=== PATIENT | male | born 1945 | race Caucasian/White ===

== ENCOUNTER 2017-11-13 07:52 | Emergency (ER) | payer MEDICARE, OTHER ==
[2017-11-13] MEDS ORDERED: Sodium Chloride 0.9% 10 ML Syringe FLUSH PRN (08:14)
[2017-11-13] MEDS ORDERED: Meclizine 25 MG Tab PO ONE (09:37)
--- NOTE | 2017-11-13 09:50 | EDM.PDOC ---
ED HPI GENERAL MEDICAL PROBLEM - General Chief Complaint: Cardiovascular Problem Stated Complaint: dizziness, weakness, diaphoretic Time Seen by Provider: 11/13/17 08:39 Source of Information: Reports: Patient History Limitations: Reports: No Limitations - History of Present Illness INITIAL COMMENTS - FREE TEXT/NARRATIVE: Patient came in to ER for evaluation due to developing diaphoresis as well as worsening dizziness this morning. He has had a long history of intermittent dizziness/vertigo that stretches back to 1969 when he had an "ear infection" that took 3 years to clear. Since then he has had intermittent issues with lightheadedness and vertigo-like complaints that can be triggered by sudden head movement. Additionally, he has been feeling more fatigued over the past few weeks and that has progressed a bit in intensity. He denies having issues with getting diaphoretic episodes in the past. He notes too that he has had some episodes where he feels as though his feet feet warm and that slowly spreads upwards. Patient is in the process of being worked up by [facility] for persistently elevated WBC. Patient says that over the past year that the WBC count has gradually been increasing. [facility] recently sent bloodwork to [facility] for processing. Patient apparently is to meet with heme/onc to go over these results when they are available. [facility] did discuss with him that fatigue may be expected. Patient denies feeling as though he has an obvious acute infection like influenza or other viral illness. No fevers. Denies runny nose/sore throat/new cough/acute GI disturbance. No complaints of pain. Continues to have a good appetite. - Related Data Allergies Allergy/AdvReac Type Severity Reaction Status Date / Time atorvastatin Allergy Muscle Verified 11/13/17 08:22 Aches Penicillins Allergy Rash Verified 11/13/17 08:22 pravastatin Allergy Muscle Verified 11/13/17 08:22 Aches Home Meds: Home Meds RX: Simvastatin [Zocor] 40 mg PO BEDTIME 05/21/16 [History] RX: Omeprazole 20 mg PO ACBREAKFAST 10/21/16 [History] RX: SUMAtriptan Succinate [Imitrex] 0.5 - 1 tab PO DAILY PRN 10/21/16 [History] Magnesium Oxide [Magnesium] 400 mg PO DAILY #30 capsule 11/13/17 [Rx] RX: Aspirin [Halfprin] 81 mg PO BRK 11/13/17 [History] RX: Vitamin D3/Vitamin K2 [D3 + K2 Dots 1,000 Unit] 2 each PO BID #120 tab.rapdis 11/13/17 [Rx] Past Medical History HEENT History: Reports: Allergic Rhinitis, Cataract, Hard of Hearing, Impaired Vision, Other (See Below) Other HEENT History: Bifocals, bilateral floaters, mild bilateral presbycusis with no hearing aid therapy, chronic tinnitus Cardiovascular History: Reports: Arrhythmia, High Cholesterol, Hypertension, PVD , Other (See Below) Other Cardiovascular History: 11/13/17- pt denies HTN reports hypotension in past , pt denies PVD Respiratory History: Reports: COPD, Pulmonary Fibrosis, Other (See Below) Other Respiratory History: Additional history of grain dust exposure Gastrointestinal History: Reports: Cholelithiasis, Colon Polyp, Diverticulosis, Gastritis, GERD, GI Bleed, Hemorrhoids, Hiatal Hernia, PUD, Other (See Below) Other Gastrointestinal History: Bleeding duodenal ulcer on 04/15/16 requiring surgery as below, 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, tubular adenoma of the cecum on 08/27/2005, non-symptomatic cholelithiasis by CT scan on 04/15/16 benign hepatic hemangioma Genitourinary History: Reports: BPH, Chronic Renal Insuffiency, Other (See Below ) Other Genitourinary History: Cr elevation, one kidney post donation Musculoskeletal History: Reports: Arthritis, Back Pain, Chronic, Osteoarthritis Neurological History: Reports: Headaches, Chronic, Migraines, Vertigo, Other ( See Below) Other Neuro History: History of chronic migraine headaches usually from wine, etc., chronic vertigo Psychiatric History: Reports: None Endocrine/Metabolic History: Reports: None Hematologic History: Reports: Anemia, Blood Transfusion(s), Iron Deficiency, Other (See Below) Other Hematologic History: 11/13/17- currently being worked up for possible blood cancer at [facility] Immunologic History: Reports: None Oncologic (Cancer) History: Reports: Other (See Below) Other Oncologic History: 11/13/17- currently being worked up for unknown blood cancer at [facility] Dermatologic History: Reports: None - Infectious Disease History Infectious Disease History: Reports: Chicken Pox, Measles, Mumps, Pertussis ( Whooping Cough) - Past Surgical History HEENT Surgical History: Reports: Cataract Surgery, Oral Surgery, Other (See Below) GI Surgical History: Reports: Colonoscopy, EGD, Hernia, Inguinal, Polypectomy, Other (See Below) Female Surgical History: Reports: Nephrectomy, Other (See Below) Dermatological Surgical History: Reports: Skin Biopsy - Past Imaging History Past Imaging History: Reports: Cardiac Echo, Carotid US, CAT Scan, PFT, Stress Testing, Ultrasound, Other (See Below) Social & Family History - Family History HEENT: Reports: None. Denies: Allergic Rhinitis, Glaucoma, Macular Degeneration , Retinal Detachment Cardiac: Reports: Afib, Arrhythmia, CAD, Heart Failure, Hypertension, SC, Other (See Below) Other Cardiac Family History: Maternal grandfather with fatal SC at age 75, maternal aunt with fatal SC at age 65, maternal uncle with coronary artery disease, mother and maternal aunt with unknown type of arrhythmia, mother with CHF in her 70s and fatal atrial fibrillation/CHF at age 91, hypertension in parents Respiratory: Reports: None. Denies: Asthma, COPD, PE, Sleep Apnea GI: Reports: GI bleed, PUD, Other (See Below) Other GI Family History: Sister with bleeding duodenal ulcer in her late 60s : Reports: Dialysis, Renal Disease/Insufficiency, Other (See Below) Other Family History: Maternal aunt with dialysis and fatal renal disease in her 80s OBGYN: Reports: None. Denies: Endometriosis, Recurrent Spontaneous Musculoskeletal: Reports: None. Denies: Arthritis, Gout, RA, SLE Neurological: Reports: CVA, Other (See Below) Other Neurological Family History: Mother with recurrent CVA, father with history of Guillian Loja syndrome Psychiatric: Reports: None. Denies: Abuse, Victim of, Anxiety, Depression, Psych Hospitalization(s), Psychosis, Suicide Attempt Endocrine/Metabolic: Reports: None. Denies: Diabetes, Type I, Diabetes, type II , Hypothyroidism Hematologic: Reports: None. Denies: SLE Immunologic: Reports: None. Denies: AIDS, HIV, SLE Dermatologic: Reports: None. Denies: Angiodema, Eczema, Psoriasis Oncologic: Reports: Leukemia, Other (See Below) Other Oncologic Family History: Maternal uncle with fatal possible stomach cancer at age 94 with initial diagnosis in his 70s, brother with fatal AML at age 46 - Tobacco Use Smoking Status *Q: Former Smoker Years of Tobacco use: 12 Packs/Tins Daily: 2 Used Tobacco, but Quit: Yes Month Tobacco Last Used: 1969 Second Hand Smoke Exposure: No - Caffeine Use Caffeine Use: Reports: Coffee (2 cups per day), Tea (One glass per day of ice tea). Denies: Energy Drinks, Soda - Alcohol Use Days Per Week of Alcohol Use: 0 (No previous DWIs, problems with alcohol abuse, etc.) - Recreational Drug Use Recreational Drug Use: No Drug Use in Last 12 Months: No - Living Situation & Occupation Living situation: Reports: , Alone Occupation: Retired ED ROS GENERAL - Review of Systems Review Of Systems: See Below Constitutional: Reports: Weakness, Fatigue, Diaphoresis. Denies: Fever, Chills , Malaise, Night Sweats, Decreased Appetite, Weight Loss, Weight Gain HEENT: Reports: Glasses, Rhinitis (chronic), Sinus Problem (chronic), Vertigo ( chronic intermittent). Denies: Ear Pain, Eye Discharge, Eye Pain, Throat Swelling, Vision Change Respiratory: Reports: No Symptoms, Other (Patient says that he has intermittent cough from his chronic sinus drainage. This is unchanged. ) Cardiovascular: Reports: Lightheadedness. Denies: Chest Pain, Dyspnea on Exertion, Edema, Orthopnea, Palpitations, PND, Syncope GI/Abdominal: Reports: No Symptoms, Other (No acute changes reported. ) : Reports: No Symptoms Musculoskeletal: Reports: No Symptoms (No acute changes. Does have chronic baseline discomfort from arthritis/low back issues) Skin: Reports: No Symptoms Neurological: Reports: Dizziness, Weakness, Other (Patient able to ambulate. Tries to make certain that he avoids sudden head movements that can worsen vertigo. ). Denies: Confusion, Headache, Numbness, Paresthesia, Pre-Existing Deficit, Seizure, Syncope, Tingling, Tremors, Trouble Speaking, Change in Speech , Gait Disturbance Psychiatric: Reports: No Symptoms Hematologic/Lymphatic: Denies: Anemia, Easy Bleeding, Easy Bruising, Swollen Glands Immunologic: Reports: Environmental Allergy, Seasonal Allergy ED EXAM, GENERAL - Physical Exam Exam: See Below Exam Limited By: No Limitations General Appearance: Alert, WD/WN, No Apparent Distress Eye Exam: Bilateral Eye: EOMI, PERRL, Other (no nystagmus noted with head rotation) Ears: Normal External Exam, Normal Canal, Hearing Grossly Normal, Normal TMs Nose: Normal Inspection, Normal Mucosa, No Blood Throat/Mouth: Normal Inspection, Normal Lips, Normal Teeth (Has some fillings noted), Normal Gums, Normal Oropharynx, Normal Voice, No Airway Compromise Head: Atraumatic, Normocephalic Neck: Normal Inspection, Supple, Non-Tender, Full Range of Motion. No: Lymphadenopathy (L), Lymphadenopathy (R) Respiratory/Chest: No Respiratory Distress, Lungs Clear, Normal Breath Sounds, No Accessory Muscle Use, Chest Non-Tender Cardiovascular: No Edema, No Murmur, Irregularly Irregular Peripheral Pulses: 2+: Femoral (L), Femoral (R) GI/Abdominal: Normal Bowel Sounds, Soft, Non-Tender, No Distention (Male) Exam: Deferred Rectal (Males) Exam: Deferred Back Exam: Normal Inspection, Full Range of Motion. No: CVA Tenderness (L), CVA Tenderness (R), Muscle Spasm, Paraspinal Tenderness, Vertebral Tenderness Extremities: Normal Inspection, Normal Range of Motion, Non-Tender, No Pedal Edema, Normal Capillary Refill Neurological: Alert, Oriented, CN II-XII Intact, Normal Cognition, Normal Gait, No Motor/Sensory Deficits Psychiatric: Normal Affect, Normal Mood Skin Exam: Warm, Dry, Intact, Normal Color, No Rash EKG INTERPRETATION EKG Date: 11/13/17 Time: 08:10 Rhythm: Other (Sinus rhythm with intermittent sinus arrhythmia. Does not appear consistent with PACs.) Rate (Beats/Min): 71 [place]: Normal P-Wave: Present QRS: RBBB ST-T: Normal QT: Normal Comparison: Change From Previous EKG (arrhythmia not present on last EKG) Course - Vital Signs Last Recorded V/S: Last Vital Signs Temp 36.5 C 11/13/17 07:52 Pulse 61 11/13/17 10:16 Resp 17 11/13/17 10:16 BP 137/91 H 11/13/17 10:16 Pulse Ox 100 11/13/17 10:16 Orthostatic Blood Pressure [ 135/70 Standing] Orthostatic Blood Pressure [ 136/75 Sitting] Orthostatic Blood Pressure [ 148/78 Supine] - Orders/Labs/Meds Orders: Active Orders 24 hr Category Date Time Status Cardiac Monitoring [RC] . DIRECTED Care 11/13/17 08:15 Active EKG Documentation Completion [RC] ASDIRECTED Care 11/13/17 08:05 Active Oxygen Therapy, ED [RC] ASDIRECTED Care 11/13/17 08:15 Active Chest 2V [CR] Routine Exams 11/13/17 09:05 Ordered Head wo Cont [CT] Stat Exams 11/13/17 09:04 Ordered URINALYSIS W/MICROSCOPIC [UA W/MICROSCOPIC] [URIN] Stat Lab 11/13/17 08:14 Uncollected Sodium Chloride 0.9% [Saline Flush] Med 11/13/17 08:14 Active 10 ml FLUSH ASDIRECTED PRN Saline Lock Insert [OM.PC] Routine Oth 11/13/17 08:14 Ordered Medication Orders Sodium Chloride (Saline Flush) 10 ml FLUSH ASDIRECTED PRN PRN Reason: Keep Vein Open Labs: Laboratory Tests 11/13/17 11/13/17 Range/Units 08:12 08:12 WBC 16.0 H (4.0-10.2) K/uL RBC 4.70 (4.33-5.41) M/uL Hgb 14.7 D (13.1-16.8) g/dL Hct 45.6 (39.0-49.0) % MCV 97.0 (84.0-98.0) fL MCH 31.3 (28.2-33.3) pg MCHC 32.2 (31.7-36.0) g/dL RDW 13.8 (11.2-14.1) % Plt Count 247 (150-350) K/uL Neut % (Auto) 29.7 L (45.0-80.0) % Lymph % (Auto) 62.6 H (10.0-50.0) % [place] % (Auto) 4.9 (2.0-14.0) % Eos % (Auto) 2.6 (0.0-5.0) % Baso % (Auto) 0.2 (0.0-2.0) % Neut # (Auto) 4.76 (1.40-7.00) K/uL Lymph # (Auto) 10.00 H (0.50-3.50) K/uL [place] # (Auto) 0.78 (0.00-1.00) K/uL Eos # (Auto) 0.41 (0.00-0.50) K/uL Baso # (Auto) 0.03 (0.00-0.20) K/uL Sodium 140 (136-145) mmol/L Potassium 4.1 (3.5-5.1) mmol/L Chloride 104 (98-107) mmol/L Carbon Dioxide 28.6 (21.0-32.0) mmol/L BUN 12 (7-18) mg/dL Creatinine 1.32 H (0.51-1.17) mg/dL Est Cr Clr Drug Dosing 52.29 mL/min Estimated GFR (MDRD) 53 mL/min Glucose 113 H (74-106) mg/dL Calcium 9.0 (8.5-10.1) mg/dL Total Bilirubin 0.4 (0.2-1.0) mg/dL AST 18 (15-37) U/L ALT 24 (12-78) U/L Alkaline Phosphatase 66 (46-116) IU/L Creatine Kinase 53 (26-308) U/L Creatine Kinase Index 1.7 (0.0-2.5) % CK-MB (CK-2) 0.90 (0.00-3.60) ng/mL Troponin I 0.000 (0.000-0.056) ng/mL Total Protein 7.2 (6.4-8.2) g/dL Albumin 2.8 L (3.4-5.0) g/dL Meds: Medications Generic Name Dose Route Start Last Admin Trade Name Freq PRN Reason Stop Dose Admin Sodium Chloride 10 ml 11/13/17 08:14 Saline Flush FLUSH ASDIRECTED PRN Keep Vein Open Discontinued Medications Generic Name Dose Route Start Last Admin Trade Name Freq PRN Reason Stop Dose Admin Meclizine HCl 25 mg 11/13/17 09:37 11/13/17 09:48 Antivert PO 11/13/17 09:38 25 mg ONETIME ONE Administration - Radiology Interpretation Free Text/Narrative:: Chest xray shows more prominence of the right horizontal fissure. No other acute abnormalities observed. CT Results Date: 11/13/17 CT Results Time: 09:45 (unremarkable head CT other than some atrophy) - Re-Assessments/Exams Free Text/Narrative Re-Assessment/Exam: 11/13/17 10:14 Troponin negative. WBC 53182. Patient not surprise at this given his upward trend over the past year. CBC/Chem otherwise noncontributory. Orthostatic BPs negative. Arrhythmia noted again is not new. Patient says that they have tried him on two different medications but the side effects were not tolerable. He feels able to go home and follow up with Luis. Observed to sit up/change positions easily during stay in ER. Cannot rule out some sort of mild viral illness, however these symptoms could very likely be related to underlying problem causing patient's abnormal WBC that is currently being worked up by Luis. Will try Meclizine to see if it helps improve sensation of dizziness. Patient is to follow up with us if things suddenly worsen, otherwise should follow up with Luis. Free Text/Narrative Re-Assessment/Exam: 11/13/17 10:53 Dizziness has resolved. No additional episodes of diaphoresis. Patient noted to get up and ambulate easily, and wanted to go home. He is agreeable with the above plan. Departure - Departure Time of Disposition: 10:36 Disposition: Home, Self-Care 01 Condition: Good Clinical Impression: Episodic recurrent vertigo, General weakness Elevated white blood cell count, unspecified Qualifiers: Leukocytosis type: unspecified Qualified Code(s): D72.829 - Elevated white blood cell count, unspecified Prescriptions: Magnesium Oxide [Magnesium] 400 mg PO DAILY #30 capsule RX: Vitamin D3/Vitamin K2 [D3 + K2 Dots 1,000 Unit] 2 each PO BID #120 tab.rapdis Referrals: Luis Colón PA [Primary Care Provider] - Forms: ED Department Discharge Additional Instructions: OK to try [id number] Meclizine/Antivert one tablet every 8 hours to see if it improves vertigo. Call Luis Wednesday to report the increasing weakness and make certain you have appropriate follow up arranged. Follow up in ER if you have sudden worsening problems. - My Orders Last 24 Hours: My Active Orders 11/13/17 08:05 EKG Documentation Completion [RC] ASDIRECTED 11/13/17 08:14 URINALYSIS W/MICROSCOPIC [UA W/MICROSCOPIC] [URIN] Stat Sodium Chloride 0.9% [Saline Flush] 10 ml FLUSH ASDIRECTED PRN Saline Lock Insert [OM.PC] Routine 11/13/17 08:15 Cardiac Monitoring [RC] . DIRECTED Oxygen Therapy, ED [RC] ASDIRECTED 11/13/17 09:04 Head wo Cont [CT] Stat 11/13/17 09:05 Chest 2V [CR] Routine - Assessment/Plan Last 24 Hours: My Active Orders 11/13/17 08:05 EKG Documentation Completion [RC] ASDIRECTED 11/13/17 08:14 URINALYSIS W/MICROSCOPIC [UA W/MICROSCOPIC] [URIN] Stat Sodium Chloride 0.9% [Saline Flush] 10 ml FLUSH ASDIRECTED PRN Saline Lock Insert [OM.PC] Routine 11/13/17 08:15 Cardiac Monitoring [RC] . DIRECTED Oxygen Therapy, ED [RC] ASDIRECTED 11/13/17 09:04 Head wo Cont [CT] Stat 11/13/17 09:05 Chest 2V [CR] Routine
[2017-11-13 10:17] VITALS: BP 137/91
== END 2017-11-13 10:50 | disposition home or self-care (01) ==
LOC: LL.ED 07:52
DX: R53.1 Weakness (principal); D72.829 Elevated white blood cell count, unspecified; R42 Dizziness and giddiness; Z88.8 Allergy status to other drugs, medicaments and biological substances; Z88.0 Allergy status to penicillin; Z79.899 Other long term (current) drug therapy; Z87.891 Personal history of nicotine dependence
CPT/HCPCS: 36000; 36415; 70450; 71046; 80053; 82550; 82553; 84484; 85025; 93005; 93010; 99284; 99285; A9270-GY

== ENCOUNTER 2018-01-14 08:21 | Inpatient (IN) | payer MEDICARE, OTHER ==
[2018-01-14] MEDS ORDERED: Sodium Chloride 0.9% 10 ML Syringe FLUSH PRN ×2 (08:32→09:30)
[2018-01-14] MEDS ORDERED: Aspirin 81 MG Tab.Chew PO ONE (09:00)
--- NOTE | 2018-01-14 09:09 | EDM.PDOC ---
ED HPI GENERAL MEDICAL PROBLEM - General Chief Complaint: Syncope Stated Complaint: Diaphoretic, Near syncopal episode Time Seen by Provider: 01/14/18 08:40 Source of Information: Reports: Patient History Limitations: Reports: No Limitations - History of Present Illness INITIAL COMMENTS - FREE TEXT/NARRATIVE: Patient is a 72-year-old gentleman who was brought in by a neighbor secondary to generalized weakness fatigue being diaphoretic and not feeling well patient denied any chest pain neighbors noticed that he was very weak and diaphoretic noted him in the car and brought him in patient states that he woke up not feeling well patient had l a good night denied any chest pain does admit to having epigastric discomfort with history of reflux esophagitis. Denies history of any heart disease does have history of COPD and pulmonary scarring. Onset: Today Duration: Hour(s):, Other (Resolving just general weakness) Location: Reports: Generalized Quality: Reports: Other (Feels back to normal except for generalized weakness) Severity: Moderate Improves with: Reports: Rest Worsens with: Reports: Other (Activity) Context: Reports: Other (Sick) Associated Symptoms: Reports: Diaphoresis, Weakness - Related Data Allergies Allergy/AdvReac Type Severity Reaction Status Date / Time atorvastatin Allergy Muscle Verified 01/14/18 08:38 Aches Penicillins Allergy Rash Verified 01/14/18 08:38 pravastatin Allergy Muscle Verified 01/14/18 08:38 Aches Home Meds: Home Meds Simvastatin [Zocor] 40 mg PO BEDTIME 05/21/16 [History] SUMAtriptan Succinate [Imitrex] 0.5 - 1 tab PO DAILY PRN 10/21/16 [History] Aspirin [Halfprin] 81 mg PO BRK 11/13/17 [History] Cholecalciferol (Vitamin D3) [Vitamin D3] 1,000 unit PO QAM 01/14/18 [History] Ferrous Sulfate 325 mg PO QAM 01/14/18 [History] Magnesium Oxide [Magnesium] 400 mg PO QAM 01/14/18 [History] Past Medical History HEENT History: Reports: Allergic Rhinitis, Cataract, Hard of Hearing, Impaired Vision, Other (See Below) Other HEENT History: Bifocals, bilateral floaters, mild bilateral presbycusis with no hearing aid therapy, chronic tinnitus Cardiovascular History: Reports: Arrhythmia, High Cholesterol, Hypertension, PVD , Other (See Below) Other Cardiovascular History: 11/13/17- pt denies HTN reports hypotension in past , pt denies PVD Respiratory History: Reports: COPD, Pulmonary Fibrosis, Other (See Below) Other Respiratory History: Additional history of grain dust exposure Gastrointestinal History: Reports: Cholelithiasis, Colon Polyp, Diverticulosis, Gastritis, GERD, GI Bleed, Hemorrhoids, Hiatal Hernia, PUD, Other (See Below) Other Gastrointestinal History: Bleeding duodenal ulcer on 04/15/16 requiring surgery as below, 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, tubular adenoma of the cecum on 08/27/2005, non-symptomatic cholelithiasis by CT scan on 04/15/16 benign hepatic hemangioma Genitourinary History: Reports: BPH, Chronic Renal Insuffiency, Other (See Below ) Other Genitourinary History: Cr elevation, one kidney post donation Musculoskeletal History: Reports: Arthritis, Back Pain, Chronic, Osteoarthritis Neurological History: Reports: Headaches, Chronic, Migraines, Vertigo, Other ( See Below) Other Neuro History: History of chronic migraine headaches usually from wine, etc., chronic vertigo Psychiatric History: Reports: None Endocrine/Metabolic History: Reports: None Hematologic History: Reports: Anemia, Blood Transfusion(s), Iron Deficiency, Other (See Below) Other Hematologic History: 11/13/17- currently being worked up for possible blood cancer at [facility] Immunologic History: Reports: None Oncologic (Cancer) History: Reports: Other (See Below) Other Oncologic History: 11/13/17- currently being worked up for unknown blood cancer at [facility] Dermatologic History: Reports: None - Infectious Disease History Infectious Disease History: Reports: Chicken Pox, Measles, Mumps, Pertussis ( Whooping Cough) - Past Surgical History HEENT Surgical History: Reports: Cataract Surgery, Oral Surgery, Other (See Below) GI Surgical History: Reports: Colonoscopy, EGD, Hernia, Inguinal, Polypectomy, Other (See Below) Female Surgical History: Reports: Nephrectomy, Other (See Below) Dermatological Surgical History: Reports: Skin Biopsy - Past Imaging History Past Imaging History: Reports: Cardiac Echo, Carotid US, CAT Scan, PFT, Stress Testing, Ultrasound, Other (See Below) Social & Family History - Family History HEENT: Reports: None. Denies: Allergic Rhinitis, Glaucoma, Macular Degeneration , Retinal Detachment Cardiac: Reports: Afib, Arrhythmia, CAD, Heart Failure, Hypertension, HI, Other (See Below) Other Cardiac Family History: Maternal grandfather with fatal HI at age 75, maternal aunt with fatal HI at age 65, maternal uncle with coronary artery disease, mother and maternal aunt with unknown type of arrhythmia, mother with CHF in her 70s and fatal atrial fibrillation/CHF at age 91, hypertension in parents Respiratory: Reports: None. Denies: Asthma, COPD, PE, Sleep Apnea GI: Reports: GI bleed, PUD, Other (See Below) Other GI Family History: Sister with bleeding duodenal ulcer in her late 60s : Reports: Dialysis, Renal Disease/Insufficiency, Other (See Below) Other Family History: Maternal aunt with dialysis and fatal renal disease in her 80s OBGYN: Reports: None. Denies: Endometriosis, Recurrent Spontaneous Musculoskeletal: Reports: None. Denies: Arthritis, Gout, RA, SLE Neurological: Reports: CVA, Other (See Below) Other Neurological Family History: Mother with recurrent CVA, father with history of Guillian Loja syndrome Psychiatric: Reports: None. Denies: Abuse, Victim of, Anxiety, Depression, Psych Hospitalization(s), Psychosis, Suicide Attempt Endocrine/Metabolic: Reports: None. Denies: Diabetes, Type I, Diabetes, type II , Hypothyroidism Hematologic: Reports: None. Denies: SLE Immunologic: Reports: None. Denies: AIDS, HIV, SLE Dermatologic: Reports: None. Denies: Angiodema, Eczema, Psoriasis Oncologic: Reports: Leukemia, Other (See Below) Other Oncologic Family History: Maternal uncle with fatal possible stomach cancer at age 94 with initial diagnosis in his 70s, brother with fatal AML at age 46 - Tobacco Use Smoking Status *Q: Former Smoker Years of Tobacco use: 12 Packs/Tins Daily: 2 Used Tobacco, but Quit: Yes Month Tobacco Last Used: Quit in 1969 Second Hand Smoke Exposure: No - Caffeine Use Caffeine Use: Reports: Coffee - Alcohol Use Days Per Week of Alcohol Use: 0 (No previous DWIs, problems with alcohol abuse, etc.) - Recreational Drug Use Recreational Drug Use: No Drug Use in Last 12 Months: No - Living Situation & Occupation Living situation: Reports: , Alone Occupation: Retired ED ROS GENERAL - Review of Systems Review Of Systems: See Below Constitutional: Reports: Weakness Respiratory: Reports: No Symptoms Cardiovascular: Reports: Other (Near syncopal episode) Endocrine: Reports: No Symptoms GI/Abdominal: Reports: Other (Epigastric discomfort) : Reports: No Symptoms Musculoskeletal: Reports: No Symptoms Skin: Reports: Diaphoresis (Prior to arrival) Neurological: Reports: No Symptoms Psychiatric: Reports: No Symptoms Hematologic/Lymphatic: Reports: No Symptoms Immunologic: Reports: No Symptoms ED EXAM, GENERAL - Physical Exam Exam: See Below Exam Limited By: No Limitations General Appearance: Alert, WD/WN, No Apparent Distress Ears: Normal External Exam, Normal Canal, Hearing Grossly Normal, Normal TMs Ear Exam: Bilateral Ear: Auricle Normal, Canal Normal, TM normal Nose: Normal Inspection, Normal Mucosa, No Blood Throat/Mouth: Normal Inspection, Normal Lips, Normal Teeth, Normal Gums, Normal Oropharynx, Normal Voice, No Airway Compromise Head: Atraumatic, Normocephalic Neck: Normal Inspection, Supple, Non-Tender, Full Range of Motion Respiratory/Chest: No Respiratory Distress, Lungs Clear, Other (Decreased breath sounds on the right base) Cardiovascular: Normal Peripheral Pulses, Regular Rate, Rhythm, No Edema, No Gallop, No JVD, No Murmur, No Rub GI/Abdominal: Normal Bowel Sounds, Soft, Non-Tender, No Organomegaly, No Distention, No Abnormal Bruit, No Mass (Male) Exam: Deferred Rectal (Males) Exam: Deferred Back Exam: Normal Inspection, Full Range of Motion, NT Extremities: Normal Inspection, Normal Range of Motion, Non-Tender, Normal Capillary Refill, No Pedal Edema Neurological: Alert, Oriented, CN II-XII Intact, Normal Cognition, Normal Gait, Normal Reflexes, No Motor/Sensory Deficits Psychiatric: Normal Affect, Normal Mood Lymphatic: No Adenopathy EKG INTERPRETATION EKG Date: 01/14/18 Rhythm: NSR [place]: Normal P-Wave: Present QRS: RBBB ST-T: Depressed (In the lateral leads seen on previous EKG) Comparison: No Change (Stable EKG) Course - Vital Signs Last Recorded V/S: Last Vital Signs Temp 98.3 F 01/14/18 08:30 Pulse 94 01/14/18 08:48 Resp 18 01/14/18 08:48 BP 125/80 01/14/18 08:48 Pulse Ox 98 01/14/18 08:48 - Orders/Labs/Meds Orders: Active Orders 24 hr Category Date Time Status Cardiac Monitoring [RC] . DIRECTED Care 01/14/18 08:32 Active EKG Documentation Completion [RC] ASDIRECTED Care 01/14/18 08:31 Active Chest 1V Frontal [CR] Stat Exams 01/14/18 08:30 Taken COMPREHENSIVE METABOLIC PN,CMP [CHEM] Stat Lab 01/14/18 08:27 Received DD [D-DIMER QUANTITATIVE] [COAG] Stat Lab 01/14/18 09:03 Ordered LACTIC ACID [CHEM] Stat Lab 01/14/18 09:03 Ordered TROPONIN I [CHEM] Stat Lab 01/14/18 08:27 Received Sodium Chloride 0.9% [Saline Flush] Med 01/14/18 08:32 Active 10 ml FLUSH ASDIRECTED PRN Saline Lock Insert [OM.PC] Routine Oth 01/14/18 08:32 Ordered Medication Orders Sodium Chloride (Saline Flush) 10 ml FLUSH ASDIRECTED PRN PRN Reason: Keep Vein Open Labs: Laboratory Tests 01/14/18 Range/Units 08:27 WBC 16.4 H (4.0-10.2) K/uL RBC 4.79 (4.33-5.41) M/uL Hgb 15.2 (13.1-16.8) g/dL Hct 46.7 (39.0-49.0) % MCV 97.5 (84.0-98.0) fL MCH 31.7 (28.2-33.3) pg MCHC 32.5 (31.7-36.0) g/dL RDW 14.1 (11.2-14.1) % Plt Count 275 (150-350) K/uL Neut % (Auto) 30.8 L (45.0-80.0) % Lymph % (Auto) 63.2 H (10.0-50.0) % [place] % (Auto) 4.3 (2.0-14.0) % Eos % (Auto) 1.5 (0.0-5.0) % Baso % (Auto) 0.2 (0.0-2.0) % Neut # (Auto) 5.07 (1.40-7.00) K/uL Lymph # (Auto) 10.38 H (0.50-3.50) K/uL [place] # (Auto) 0.70 (0.00-1.00) K/uL Eos # (Auto) 0.24 (0.00-0.50) K/uL Baso # (Auto) 0.04 (0.00-0.20) K/uL Meds: Medications Generic Name Dose Route Start Last Admin Trade Name Freq PRN Reason Stop Dose Admin Sodium Chloride 10 ml 01/14/18 08:32 Saline Flush FLUSH ASDIRECTED PRN Keep Vein Open Discontinued Medications Generic Name Dose Route Start Last Admin Trade Name Freq PRN Reason Stop Dose Admin Aspirin 253 mg 01/14/18 09:00 Aspirin PO 01/14/18 09:01 ONETIME ONE Departure - Departure Time of Disposition: 09:21 Disposition: Admitted As Inpatient 64 Condition: Fair Clinical Impression: Syncope, near, Peptic reflux disease, Chronic lymphocytic leukemia, Gastroesophageal reflux disease Referrals: Luis Colón PA [Primary Care Provider] - Forms: ED Department Discharge - Problem List & Annotations (1) Syncopal episodes SNOMED Code(s): 460549748 Code(s): R55 - SYNCOPE AND COLLAPSE Status: Acute Current Visit: Yes Annotation/Comment:: Patient will be admitted for workup and evaluation placed on telemetry with - Problem List Review Problem List Initiated/Reviewed/Updated: Yes - My Orders Last 24 Hours: My Active Orders 01/14/18 08:27 COMPREHENSIVE METABOLIC PN,CMP [CHEM] Stat TROPONIN I [CHEM] Stat 01/14/18 08:30 Chest 1V Frontal [CR] Stat 01/14/18 08:31 EKG Documentation Completion [RC] ASDIRECTED 01/14/18 08:32 Cardiac Monitoring [RC] . DIRECTED Sodium Chloride 0.9% [Saline Flush] 10 ml FLUSH ASDIRECTED PRN Saline Lock Insert [OM.PC] Routine 01/14/18 09:03 DD [D-DIMER QUANTITATIVE] [COAG] Stat LACTIC ACID [CHEM] Stat - Assessment/Plan Admission H&P: Please use this note as an admission H&P Last 24 Hours: My Active Orders 01/14/18 08:27 COMPREHENSIVE METABOLIC PN,CMP [CHEM] Stat TROPONIN I [CHEM] Stat 01/14/18 08:30 Chest 1V Frontal [CR] Stat 01/14/18 08:31 EKG Documentation Completion [RC] ASDIRECTED 01/14/18 08:32 Cardiac Monitoring [RC] . DIRECTED Sodium Chloride 0.9% [Saline Flush] 10 ml FLUSH ASDIRECTED PRN Saline Lock Insert [OM.PC] Routine 01/14/18 09:03 DD [D-DIMER QUANTITATIVE] [COAG] Stat LACTIC ACID [CHEM] Stat
[2018-01-14] MEDS: Aspirin 81 MG Tab.Chew PO ONE ×2 (09:14→09:16)
[2018-01-14] MEDS: Lactated Ringers 1,000 ML IV SCH ×2 (10:15→20:32)
[2018-01-14] MEDS: Pantoprazole 40 MG Vial IVPUSH SCH (11:09)
[2018-01-15] MEDS: Lactated Ringers 1,000 ML IV SCH (05:04)
[2018-01-15] MEDS: Pantoprazole 40 MG Vial IVPUSH SCH (07:25)
[2018-01-15] MEDS ORDERED: Aspirin 81 MG Tab.Chew PO SCH (08:00)
[2018-01-15] MEDS ORDERED: Pantoprazole 40 MG Tab.CR PO SCH (08:00)
[2018-01-15 09:01] VITALS: BP 130/72
--- NOTE | 2018-01-15 11:34 | PCM.DCSUM1 ---
Discharge Summary - Hospital Course Free Text/Narrative:: Patient was admitted yesterday with generalized weakness fatigue admitted to the hospital for observation feeling much better at this time still complains that he has some diarrhea on occasion with irregular bowel movements no chest pain troponins 3 was negative - Discharge Data Discharge Date: 01/15/18 Discharge Disposition: Home, Self-Care 01 Condition: Good - Discharge Diagnosis/Problem(s) (1) Syncopal episodes SNOMED Code(s): 783895050 ICD Code: R55 - SYNCOPE AND COLLAPSE Status: Acute Current Visit: Yes Problem Details: Patient will be admitted for workup and evaluation placed on telemetry with - Patient Instructions Diet: Heart Healthy Diet Activity: As Tolerated Driving: May Drive Today Showering/Bathing: March Shower - Discharge Plan Home Medications: Home Meds Simvastatin [Zocor] 40 mg PO BEDTIME 05/21/16 [History] SUMAtriptan Succinate [Imitrex] 0.5 - 1 tab PO DAILY PRN 10/21/16 [History] Aspirin [Halfprin] 81 mg PO BRK 11/13/17 [History] Cholecalciferol (Vitamin D3) [Vitamin D3] 1,000 unit PO QAM 01/14/18 [History] Ferrous Sulfate 325 mg PO QAM 01/14/18 [History] Magnesium Oxide [Magnesium] 400 mg PO QAM 01/14/18 [History] Patient Handouts: Near-Syncope, Pantoprazole injection Forms: ED Department Discharge Referrals: Luis Colón PA [Primary Care Provider] - - Discharge Summary/Plan Comment Discharge Summary/Plan Comment: Patient will be sent home with instructions to obtain stools for Hemoccult 3 and stool cultures and O&P - General Info Date of Service: 01/15/18 Functional Status: Reports: Tolerating Diet - Review of Systems General: Reports: No Symptoms HEENT: Reports: No Symptoms Pulmonary: Reports: No Symptoms Cardiovascular: Reports: No Symptoms Gastrointestinal: Reports: Diarrhea Genitourinary: Reports: No Symptoms Musculoskeletal: Reports: No Symptoms Skin: Reports: No Symptoms Neurological: Reports: No Symptoms Psychiatric: Reports: No Symptoms - Patient Data Vitals - Most Recent: Last Vital Signs Temp 98.2 F 01/15/18 08:00 Pulse 76 01/15/18 08:00 Resp 15 01/15/18 08:00 BP 130/72 01/15/18 08:00 Pulse Ox 96 01/15/18 08:00 Weight - Most Recent: 206 lb 6.4 oz I&O - Last 24 hours: Intake & Output 01/14/18 01/15/18 01/15/18 22:59 06:59 14:59 Intake Total 240 600 Balance 240 600 Lab Results - Last 24 hrs: Laboratory Results - last 24 hr 01/14/18 01/14/18 01/15/18 Range/Units 13:50 20:30 07:15 WBC 14.4 H (4.0-10.2) K/uL RBC 4.31 L (4.33-5.41) M/uL Hgb 13.6 D (13.1-16.8) g/dL Hct 42.1 (39.0-49.0) % MCV 97.7 (84.0-98.0) fL MCH 31.6 (28.2-33.3) pg MCHC 32.3 (31.7-36.0) g/dL RDW 13.6 (11.2-14.1) % Plt Count 236 (150-350) K/uL Neut % (Auto) 34.6 L (45.0-80.0) % Lymph % (Auto) 59.0 H (10.0-50.0) % [place] % (Auto) 4.7 (2.0-14.0) % Eos % (Auto) 1.4 (0.0-5.0) % Baso % (Auto) 0.3 (0.0-2.0) % Neut # (Auto) 4.99 (1.40-7.00) K/uL Lymph # (Auto) 8.52 H (0.50-3.50) K/uL [place] # (Auto) 0.68 (0.00-1.00) K/uL Eos # (Auto) 0.20 (0.00-0.50) K/uL Baso # (Auto) 0.04 (0.00-0.20) K/uL Sodium (136-145) mmol/L Potassium (3.5-5.1) mmol/L Chloride (98-107) mmol/L Carbon Dioxide (21.0-32.0) mmol/L BUN (7-18) mg/dL Creatinine (0.51-1.17) mg/dL Est Cr Clr Drug Dosing mL/min Estimated GFR (MDRD) mL/min Glucose (74-106) mg/dL Calcium (8.5-10.1) mg/dL Troponin I 0.000 0.000 (0.000-0.056) ng/mL 01/15/18 Range/Units 07:15 WBC (4.0-10.2) K/uL RBC (4.33-5.41) M/uL Hgb (13.1-16.8) g/dL Hct (39.0-49.0) % MCV (84.0-98.0) fL MCH (28.2-33.3) pg MCHC (31.7-36.0) g/dL RDW (11.2-14.1) % Plt Count (150-350) K/uL Neut % (Auto) (45.0-80.0) % Lymph % (Auto) (10.0-50.0) % [place] % (Auto) (2.0-14.0) % Eos % (Auto) (0.0-5.0) % Baso % (Auto) (0.0-2.0) % Neut # (Auto) (1.40-7.00) K/uL Lymph # (Auto) (0.50-3.50) K/uL [place] # (Auto) (0.00-1.00) K/uL Eos # (Auto) (0.00-0.50) K/uL Baso # (Auto) (0.00-0.20) K/uL Sodium 140 (136-145) mmol/L Potassium 4.3 (3.5-5.1) mmol/L Chloride 106 (98-107) mmol/L Carbon Dioxide 27.5 (21.0-32.0) mmol/L BUN 14 (7-18) mg/dL Creatinine 1.37 H (0.51-1.17) mg/dL Est Cr Clr Drug Dosing 50.38 mL/min Estimated GFR (MDRD) 51 mL/min Glucose 94 (74-106) mg/dL Calcium 8.8 (8.5-10.1) mg/dL Troponin I (0.000-0.056) ng/mL Med Orders - Current: Current Medications Aspirin (Aspirin) 81 mg PO DAILY [facility] Last Admin: 01/15/18 07:25 Dose: 81 mg Lactated Ringer's (Ringers, Lactated) 1,000 mls @ 100 mls/hr IV ASDIRECTED [facility] Last Admin: 01/15/18 05:04 Dose: 100 mls/hr Imipramine HCl (Imipramine Hcl) 100 mg PO BEDTIME PRN PRN Reason: Headache Last Admin: 01/14/18 20:32 Dose: 100 mg Pantoprazole Sodium (Protonix Iv) 40 mg IVPUSH DAILY [facility] Last Admin: 01/15/18 07:25 Dose: 40 mg Sodium Chloride (Saline Flush) 10 ml FLUSH ASDIRECTED PRN PRN Reason: Keep Vein Open Last Admin: 01/15/18 07:25 Dose: 10 ml Sodium Chloride (Saline Flush) 10 ml FLUSH ASDIRECTED PRN PRN Reason: Keep Vein Open Discontinued Medications Aspirin (Aspirin) 243 mg PO ONETIME ONE Stop: 01/14/18 09:14 Last Admin: 01/14/18 09:16 Dose: 243 mg Pantoprazole Sodium (Protonix) 40 mg PO DAILY [facility] - Exam General: Reports: Alert, Oriented HEENT: Reports: Pupils Equal, Pupils Reactive, EOMI, Mucous Membr. Moist/[place] Neck: Reports: Supple Lungs: Reports: Clear to Auscultation, Normal Respiratory Effort Cardiovascular: Reports: Regular Rate, Regular Rhythm GI/Abdominal Exam: Normal Bowel Sounds, Soft, Non-Tender, No Organomegaly, No Distention, No Abnormal Bruit, No Mass, Pelvis Stable (Male) Exam: No Hernia, Normal Inspection, Normal Prostate, Circumcised Rectal (Males) Exam: Normal Exam, Normal Rectal Tone, Prostate Normal Back Exam: Reports: Normal Inspection, Full Range of Motion Extremities: Normal Inspection, Normal Range of Motion, Non-Tender, No Pedal Edema, Normal Capillary Refill Skin: Reports: Warm, Dry, Intact Wound/Incisions: Reports: Healing Well Neurological: Reports: No New Focal Deficit Psy/Mental Status: Reports: Alert, Normal Affect, Normal Mood *Q Meaningful Use (DIS) - VTE *Q VTE Criteria *Q: - Stroke *Q Stroke Criteria *Q: - AMI *Q AMI Criteria *Q:
== END 2018-01-15 12:15 | disposition home or self-care (01) | DRG 312 ==
LOC: LL.ED 08:21 → UNDOADMIN 09:01 → LL.MS 09:01 → UNDODISIN 01-15 12:15
PROVIDERS: ADMIT Family Medicine; ATTEND Family Medicine
DX: R55 Syncope and collapse (principal); C91.10 Chronic lymphocytic leukemia of B-cell type not having achieved remission; I12.9 Hypertensive chronic kidney disease with stage 1 through stage 4 chronic kidney disease, or unspecified chronic kidney disease; N18.9 Chronic kidney disease, unspecified; Z87.891 Personal history of nicotine dependence; E78.00 Pure hypercholesterolemia, unspecified; J44.9 Chronic obstructive pulmonary disease, unspecified; J84.10 Pulmonary fibrosis, unspecified; K21.9 Gastro-esophageal reflux disease without esophagitis; K44.9 Diaphragmatic hernia without obstruction or gangrene; N40.0 Benign prostatic hyperplasia without lower urinary tract symptoms; M19.90 Unspecified osteoarthritis, unspecified site; G89.29 Other chronic pain; M54.9 Dorsalgia, unspecified; H91.90 Unspecified hearing loss, unspecified ear; H54.7 Unspecified visual loss; Z88.8 Allergy status to other drugs, medicaments and biological substances; Z79.82 Long term (current) use of aspirin; Z79.899 Other long term (current) drug therapy
CPT/HCPCS: 36000; 36415; 71045; 80048; 80053; 83605; 84484; 85025; 85379; 93005; 93010; 99285; A9270-GY; C9113; J7050; J7120

== ENCOUNTER 2018-12-01 07:49 | Day surgery (SDC) | payer MEDICARE, OTHER ==
[~2018-12-01 07:49] MED LIST: Midazolam 1 MG/ML 2 ML SDV ONE; Propofol 200 MG/20 ML SDV ONE; fentaNYL 100 MCG/2 ML SDV ONE
[2018-12-01] MEDS ORDERED: Sodium Chloride 0.9% 10 ML Syringe FLUSH PRN (08:00)
[2018-12-01] MEDS ORDERED: Lactated Ringers 1,000 ML IV SCH (08:00)
[2018-12-01] MEDS ORDERED: Propofol 200 MG/20 ML SDV ONE (09:38)
[2018-12-01] MEDS ORDERED: Dexamethasone 10 MG/ML SDV ONE (09:38)
[2018-12-01] MEDS ORDERED: Midazolam 1 MG/ML 2 ML SDV ONE (09:38)
[2018-12-01] MEDS ORDERED: fentaNYL 100 MCG/2 ML SDV ONE (09:38)
[2018-12-01] MEDS ORDERED: ePHEDrine 50 MG/ML SDV ONE (09:38)
[2018-12-01] MEDS ORDERED: Succinylcholine 200 MG/10 ML MDV ONE (09:38)
[2018-12-01] MEDS ORDERED: Ondansetron 4 MG/2 ML SDV ONE (09:38)
[2018-12-01] MEDS ORDERED: Ketamine 500 mg/10 ML MDV ONE ×2 (09:38→09:49)
--- NOTE | 2018-12-01 09:40 | PCM.HP ---
H&P History of Present Illness - General Date of Service: 12/01/18 Admit Problem/Dx: Admission Diagnosis/Problem Admission Diagnosis/Problem Hernia Source of Information: Patient, Old Records History Limitations: Reports: No Limitations - History of Present Illness Initial Comments - Free Text/Narative: Here for repair of right inguinal hernia and umbilical hernia repair. See note for 2 weeks ago for details. - Related Data Allergies/Adverse Reactions: Allergies Allergy/AdvReac Type Severity Reaction Status Date / Time atorvastatin Allergy Muscle Verified 12/01/18 08:33 Aches Penicillins Allergy Rash Verified 12/01/18 08:33 pravastatin Allergy Muscle Verified 12/01/18 08:33 Aches Home Medications: Home Meds SUMAtriptan Succinate [Imitrex] 0.5 - 1 tab PO DAILY PRN 10/21/16 [History] Aspirin [Halfprin] 81 mg PO DAILY 11/13/17 [History] Acetaminophen [Tylenol] 650 mg PO Q6H PRN 10/06/18 [History] Ubidecarenone [Co Q-10] 100 mg PO BID 10/06/18 [History] Rosuvastatin Calcium 20 mg PO BEDTIME 11/30/18 [History] Past Medical History HEENT History: Reports: Allergic Rhinitis, Cataract, Hard of Hearing Other HEENT History: bilat cataracts,tinnitus, vitreous opacities Cardiovascular History: Reports: Arrhythmia, High Cholesterol, Hypertension Other Cardiovascular History: Right bundle branch block, supraventricular premature beats Respiratory History: Reports: Bronchitis, Recurrent, COPD, Other (See Below) Other Respiratory History: anomalies of diaphragm,congenital Gastrointestinal History: Reports: Diverticulosis, GERD Other Gastrointestinal History: peptic ulcer,benign neoplasm of colon, duodenal ulcer Genitourinary History: Reports: Renal Disease, Other (See Below) Other Genitourinary History: kidney donation, disorder of kidney/ureter Musculoskeletal History: Reports: Osteoarthritis Neurological History: Reports: Migraines Other Neuro History: History of chronic migraine headaches usually from wine, etc., chronic vertigo Psychiatric History: Reports: None Endocrine/Metabolic History: Reports: None Hematologic History: Reports: Iron Deficiency, Other (See Below) Other Hematologic History: lymphocytosis Immunologic History: Reports: None Oncologic (Cancer) History: Reports: Other (See Below) Other Oncologic History: chronic lymphocytic leukemia Dermatologic History: Reports: Other (See Below) Other Dermatologic History: hemangioma - Infectious Disease History Infectious Disease History: Reports: Chicken Pox, Measles, Mumps, Pertussis ( Whooping Cough) - Past Surgical History HEENT Surgical History: Reports: Cataract Surgery Other HEENT Surgeries/Procedures: bilat GI Surgical History: Reports: Colonoscopy, EGD, Hernia Repair/Other Male Surgical History: Reports: Nephrectomy - Past Imaging History Past Imaging History: Reports: Cardiac Echo, Carotid US, CAT Scan, PFT, Stress Testing, Ultrasound, Other (See Below) Social & Family History - Family History HEENT: Reports: None. Denies: Allergic Rhinitis, Glaucoma, Macular Degeneration , Retinal Detachment Cardiac: Reports: Afib, Arrhythmia, CAD, Heart Failure, Hypertension, IL, Other (See Below) Other Cardiac Family History: Maternal grandfather with fatal IL at age 75, maternal aunt with fatal IL at age 65, maternal uncle with coronary artery disease, mother and maternal aunt with unknown type of arrhythmia, mother with CHF in her 70s and fatal atrial fibrillation/CHF at age 91, hypertension in parents Respiratory: Reports: None. Denies: Asthma, COPD, PE, Sleep Apnea GI: Reports: GI bleed, PUD, Other (See Below) Other GI Family History: Sister with bleeding duodenal ulcer in her late 60s : Reports: Dialysis, Renal Disease/Insufficiency, Other (See Below) Other Family History: Maternal aunt with dialysis and fatal renal disease in her 80s OBGYN: Reports: None. Denies: Endometriosis, Recurrent Spontaneous Musculoskeletal: Reports: None. Denies: Arthritis, Gout, RA, SLE Neurological: Reports: CVA, Other (See Below) Other Neurological Family History: Mother with recurrent CVA, father with history of Guillian Loja syndrome Psychiatric: Reports: None. Denies: Abuse, Victim of, Anxiety, Depression, Psych Hospitalization(s), Psychosis, Suicide Attempt Endocrine/Metabolic: Reports: None. Denies: Diabetes, Type I, Diabetes, type II , Hypothyroidism Hematologic: Reports: None. Denies: SLE Immunologic: Reports: None. Denies: AIDS, HIV, SLE Dermatologic: Reports: None. Denies: Angiodema, Eczema, Psoriasis Oncologic: Reports: Leukemia, Other (See Below) Other Oncologic Family History: Maternal uncle with fatal possible stomach cancer at age 94 with initial diagnosis in his 70s, brother with fatal AML at age 46 - Tobacco Use Smoking Status *Q: Former Smoker Month/Year Tobacco Last Used: quit 50 years ago - Caffeine Use Caffeine Use: Reports: Coffee - Recreational Drug Use Recreational Drug Use: No - Living Situation & Occupation Living situation: Reports: , Alone Occupation: Retired H&P Review of Systems - Review of Systems: Review Of Systems: ROS reveals no pertinent complaints other than HPI. Exam - Exam Exam: See Below - Vital Signs Vital Signs: Last Vital Signs Temp 98.1 F 12/01/18 08:35 Pulse 95 12/01/18 08:35 Resp 20 12/01/18 08:35 BP 129/81 12/01/18 08:35 Pulse Ox 99 12/01/18 08:35 Weight: 92.986 kg - Exam General: Alert, Oriented Lungs: Clear to Auscultation, Normal Respiratory Effort Cardiovascular: Regular Rate, Regular Rhythm GI/Abdominal Exam: Soft, Non-Tender, Hernia (right inguinal and umbilical) Problem List Initiated/Reviewed/Updated: Yes Orders Last 24hrs: Active Orders 24 hr Category Date Time Status Patient Status [ADT] Routine ADT 12/01/18 08:00 Active Peripheral IV Care [RC] . DIRECTED Care 12/01/18 08:00 Active RT Incentive Spirometry [RC] Q1HWA Care 12/01/18 08:00 Active Verify Patient Consent Obtain [RC] ASDIRECTED Care 12/01/18 08:00 Active Lactated Ringers [Ringers, Lactated] 1,000 ml Med 12/01/18 08:00 Active IV ASDIRECTED Sodium Chloride 0.9% [Saline Flush] Med 12/01/18 08:00 Active 10 ml FLUSH ASDIRECTED PRN Antiembolic Hose [OM.PC] Routine Oth 12/01/18 08:00 Ordered Peripheral IV Insertion Adult [OM.PC] Routine Oth 12/01/18 08:00 Ordered Sequential Compression Device [OM.PC] Routine Oth 12/01/18 08:00 Ordered Medication Orders Lactated Ringer's (Ringers, Lactated) 1,000 mls @ 125 mls/hr IV ASDIRECTED OSCAR Last Admin: 12/01/18 08:52 Dose: 125 mls/hr Sodium Chloride (Saline Flush) 10 ml FLUSH ASDIRECTED PRN PRN Reason: Keep Vein Open Assessment/Plan Comment:: Right Inguinal and Umbilical Hernias Ok to proceed with surgery
[2018-12-01] MEDS ORDERED: Bupivacaine 0.25%/EPINEPHrine 1:200,000 30 ML SDV INJECT ONE (10:05)
[2018-12-01] MEDS ORDERED: ceFAZolin 1 GM Vial ONE (10:13)
--- NOTE | 2018-12-01 11:48 | PCM.OPNOTE ---
- General Post-Op/Procedure Note Date of Surgery/Procedure: 12/01/18 Operative Procedure(s): R IH and Umb Hernia Repair Pre Op Diagnosis: R IH and Umb Hernia Post-Op Diagnosis: Same Anesthesia Technique: General ET Tube Primary Surgeon: Celestino Broderick Anesthesia Provider: Carolyn COVINGTON in mLs: 10 Condition: Good
[2018-12-01] MEDS ORDERED: Morphine 2 MG/ML Syringe IVPUSH PRN (11:56)
[2018-12-01] MEDS ORDERED: Acetaminophen/HYDROcodone 325-5 MG Tab PO PRN (11:57)
[2018-12-01 12:20] VITALS: BP 125/73
--- NOTE | 2018-12-01 12:28 | OR ---
Date of Procedure: 12/01/2018 PREOPERATIVE DIAGNOSES: 1. Right inguinal hernia. 2. Umbilical hernia. POSTOPERATIVE DIAGNOSES: 1. Right inguinal hernia. 2. Umbilical hernia. PROCEDURES: 1. Right inguinal hernia repair with mesh. 2. Umbilical hernia repair. ANESTHESIA: Local MAC converted to general endotracheal. PROCEDURE IN DETAIL: The patient was brought to the operating room after surgical site had been marked by myself and the patient. Time-out was performed. IV sedation was administered. Abdomen was prepped with ChloraPrep and draped sterilely. A 50:50 mixture of 1% lidocaine and 0.25% Marcaine with epinephrine was used for local anesthesia. Right inguinal area was infiltrated and a routine hernia incision made 2 fingerbreadths above the inguinal ligament. The dissection was continued to the external fascia. External fascia was opened in line with the external ring. Ilioinguinal nerve was identified and retracted inferiorly and protected from injury. The cord structures were dissected off the pubic tubercle. The patient was having discomfort and decided to convert to general anesthesia at that time. The cord was from the hernia sac and lipoma. Moderate-sized lipoma was ligated at the base of the internal ring and transected. The cord was twisted and suture ligated at its base with 3-0 Vicryl and excess sac transected. A routine repair was then performed by using pre-cut large keyhole polypropylene mesh and securing it to the pubic tubercle with 0 prolene. Several more interrupted sutures were used to secure to Joe's ligament inferiorly and then a transition stitch made to the shelving edge of Poupart's ligament, medial to the femoral vein. The edges of the mesh were brought around the cord and nerve and secured laterally such that the tip of the small finger would snugly fit into the opening. Excess mesh was trimmed laterally and tucked beneath the external fascia. After the inferior edge was completed being secured, the superior edge was secured with interrupted 0 prolene to the muscle, providing a tension-free repair. Wound was thoroughly irrigated with Ancef and saline. External fascia was closed with running 3-0 Vicryl, subcutaneous tissue was reapproximated with 3-0 Vicryl, and skin closed with a running 4-0 Vicryl subcuticular suture. Benzoin and Steri-Strips were placed at the end of the procedure. Next, the umbilical hernia was repaired by making an infraumbilical incision. The hernia contents consisted of preperitoneal fat that could not be reduced through the fascial opening. Therefore, it was clamped and ligated and tied with 2-0 Vicryl at its base. The hernia defect only measures approximately 6 mm in diameter. This was closed with interrupted 0 prolene. The umbilical skin was secured to the fascia with 4-0 Vicryl and skin closed with 4-0 Vicryl subcuticular sutures. Benzoin and Steri-Strips were also placed here. Sterile dressings were applied. The patient tolerated the procedures well. ESTIMATED BLOOD LOSS: 10 mL. He returned to postanesthesia in stable condition. AMY MATTHEWS MD /[id number]
== END 2018-12-01 14:25 | disposition home or self-care (01) ==
LOC: LL.SDS 07:49
PROVIDERS: ATTEND Surgery
DX: K40.90 Unilateral inguinal hernia, without obstruction or gangrene, not specified as recurrent (principal); K42.9 Umbilical hernia without obstruction or gangrene; D17.6 Benign lipomatous neoplasm of spermatic cord; J30.9 Allergic rhinitis, unspecified; E78.00 Pure hypercholesterolemia, unspecified; I10 Essential (primary) hypertension; I49.9 Cardiac arrhythmia, unspecified; J44.9 Chronic obstructive pulmonary disease, unspecified; I45.10 Unspecified right bundle-branch block; K57.30 Diverticulosis of large intestine without perforation or abscess without bleeding; K21.9 Gastro-esophageal reflux disease without esophagitis; M19.90 Unspecified osteoarthritis, unspecified site; G43.909 Migraine, unspecified, not intractable, without status migrainosus; D50.9 Iron deficiency anemia, unspecified; Z88.0 Allergy status to penicillin; Z88.8 Allergy status to other drugs, medicaments and biological substances; Z79.82 Long term (current) use of aspirin; Z79.899 Other long term (current) drug therapy; Z87.891 Personal history of nicotine dependence
CPT/HCPCS: C1781; J0330; J0690; J1100; J2001; J2250; J2405; J2704; J3010; J7120

== ENCOUNTER 2019-01-16 00:47 | Emergency (ER) | payer MEDICARE, OTHER ==
[2019-01-16] MEDS ORDERED: Sodium Chloride 0.9% 10 ML Syringe FLUSH PRN ×2 (01:15→01:18)
--- NOTE | 2019-01-16 01:15 | EDM.PDOC ---
ED HPI GENERAL MEDICAL PROBLEM - General Chief Complaint: Gastrointestinal Problem Stated Complaint: acid reflux Time Seen by Provider: 01/16/19 01:10 Source of Information: Reports: Patient, Old Records ([facility] chart/EMR), Other ([facility] EMR) History Limitations: Reports: No Limitations - History of Present Illness INITIAL COMMENTS - FREE TEXT/NARRATIVE: Patient drove himself to the emergency room via private automobile for evaluation of 8-10/10 epigastric pain with radiation to the upper quadrants bilaterally. Symptoms started at about 22:30 hours this evening with no improvement after antacids at home. Patient does have known history of GERD with recent decreased activity secondary to hernia surgery in late November as below. No recent history of other abdominal pain, nausea, diarrhea, melena, gross hematochezia, or any food intolerance, including fatty foods, etc. with normal bowel movement about one hour prior to arrival. He denies any gross hematuria, colic, or other UTI symptoms. The patient denies any chest pain/ pressure, heart flutter, dizziness, orthostasis, orthopnea, diaphoresis, paresthesias, recent decreased exercise tolerance, or any other anginal-type symptoms. The patient also denies any recent fever, cough, wheezing, dyspnea, etc.. He did receive his influenza booster this season. Onset: Today, Gradual Onset Date: 01/16/19 Onset Time: 22:30 Duration: Constant, Getting Worse Location: Reports: Abdomen. Denies: Head, Face, Neck, Chest, Back, Pelvis, Upper Extremity, Left, Upper Extremity, Right, Radiates to Quality: Reports: Same as Previous Episode, Stabbing Improves with: Reports: None Worsens with: Reports: None Context: Reports: Other (As above). 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: Reports: Other Medication(s) (As above) Middle Epigastric Pain Score (Numeric/FACES): 8 - Related Data Allergies Allergy/AdvReac Type Severity Reaction Status Date / Time atorvastatin Allergy Muscle Verified 01/16/19 00:53 Aches Penicillins Allergy Rash Verified 01/16/19 00:53 pravastatin Allergy Muscle Verified 01/16/19 00:53 Aches Home Meds: Home Meds SUMAtriptan Succinate [Imitrex] 0.5 - 1 tab PO DAILY PRN 10/21/16 [History] Aspirin [Halfprin] 81 mg PO DAILY 11/13/17 [History] Acetaminophen [Tylenol] 650 mg PO Q6H PRN 10/06/18 [History] Ubidecarenone [Co Q-10] 100 mg PO BID 10/06/18 [History] Rosuvastatin Calcium 20 mg PO BEDTIME 11/30/18 [History] Mag Carb/Al Hydrox/Alginic Ac [Gaviscon Extra Strength Liquid] 30 ml PO ASDIRECTED PRN 01/16/19 [History] Past Medical History HEENT History: Reports: Allergic Rhinitis, Cataract, Hard of Hearing, Impaired Vision. Denies: Glaucoma, Macular Degeneration, Retinal Detachment Other HEENT History: Patient wears glasses. Moderate bilateral presbycusis with no current hearing aid therapy. Chronic tinnitus. Patient wears bifocals. History of bilateral floaters area Cardiovascular History: Reports: Arrhythmia, Heart Murmur, High Cholesterol, Hypertension, PVD, Syncope. Denies: Afib, Aneurysm, Blood Clots/VTE/DVT, CAD, Cardiomyopathy, Heart Failure, [place] Other Cardiovascular History: Near syncopal episode on 01/14/18. Complete right bundle branch block, PACs, PVCs, brief bigeminy with previous questionable ventricular tachycardia. Intermittent bradycardia. Mild to moderate left ventricular dilatation by Cardiolite scan and echocardiogram. Borderline carotid occlusive disease. Mild Aortic valve insufficiency by echocardiogram in 2019 Respiratory History: Reports: Bronchitis, Recurrent, COPD, Intubation, Previous , Pulmonary Fibrosis, Other (See Below). 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 Additional history of chronic grain dust exposure. Gastrointestinal History: Reports: Cholelithiasis, Colon Polyp, Diverticulosis, Gastritis, GERD, GI Bleed, Hemorrhoids, PUD. Denies: Bowel Obstruction, Celiac Disease, Chronic Constipation, Chronic Diarrhea, Fecal Incontinence, Hepatitis, Inflammatory Bowel Disease, Irritable Bowel Syndrome, Jaundice, Pancreatitis Other Gastrointestinal History: Ruptured bleeding duodenal ulcer on 04/15/16 with severe upper GI bleed requiring 2 units of packed red blood cells and surgery as below. Sigmoid diverticulosis by colonoscopy with the large hamartous polyp excised in the descending colon colonoscopy in October 2016 as below. 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 Benign hepatic hemangioma. Nonsymptomatic cholelithiasis by CT scan on . Genitourinary History: Reports: BPH, Chronic Renal Insuffiency, Renal Disease, Other (See Below). Denies: Acute Renal Failure, Dialysis, Renal Calculus, STD, Urinary Incontinence, UTI, Recurrent Other Genitourinary History: Kidney donation as below with secondary mild chronic renal insufficiency. Musculoskeletal History: Reports: Arthritis, Back Pain, Chronic, Osteoarthritis. Denies: Amputation, Fracture, Gout, Neck Pain, Chronic, Osteoporosis, RA, SLE Neurological History: Reports: Headaches, Chronic, Migraines, Vertigo. Denies: Alzheimers Disease, Cerebral Aneurysms, Concussion, CVA, Head Trauma, MS, Neuropathy, Diabetic, Neuropathy, Peripheral, Parkinson's, Seizure Other Neuro History: History of chronic migraine headaches usually from wine, etc., chronic vertigo Psychiatric History: Reports: None. Denies: Abuse, Victim of, ADD, ADHD, Anxiety, Depression, Psych Hospitalization(s), PTSD, Suicide Attempt, Suicidal Ideation Endocrine/Metabolic History: Reports: Other (See Below). Denies: Diabetes, Type I, Diabetes, Type II, Diabetes Mellitus, Type 3c, Hypothyroidism, IDDM, Obesity/BMI 30+, Osteopenia, Osteoporosis Other Endocrine/Metabolic History: Hypoalbuminemia Hematologic History: Reports: Blood Transfusion(s), Iron Deficiency, Other (See Below). Denies: Anemia Other Hematologic History: CLL as below. History of both microcytosis and macrocytosis with previous upper GI bleed as above on 04/15/16 with 2 units of packed red blood cells required at that time. Immunologic History: Reports: Immunosuppression, Other (See Below). Denies: AIDS, HIV, SLE Other Immunologic History: CLL as below Oncologic (Cancer) History: Reports: Leukemia, Other (See Below). Denies: Basal Cell Carcinoma, Colon, Hodgkin's Lymphoma, Lymphoma, Malignant Melanoma, Non-Hodgkin's Lymphoma, Prostate, Squamous Cell Carcinoma Other Oncologic History: chronic lymphocytic leukemia initially diagnosed in November 2017 with no chemotherapy, etc. to this point Dermatologic History: Reports: Other (See Below). Denies: Eczema, Psoriasis Other Dermatologic History: hemangioma - Infectious Disease History Infectious Disease History: Reports: Chicken Pox, Measles, Mumps, Pertussis ( Whooping Cough), Other (See Below) (West Nile virus infection in 2018.). Denies : C-Difficile, Meningitis, Mononucleosis, MRSA, Rheumatic Fever, Rubella, Scarlet Fever, Shingles, TB, VRE - Past Surgical History Head Surgeries/Procedures: Reports: None HEENT Surgical History: Reports: Cataract Surgery, Other (See Below) Other HEENT Surgeries/Procedures: Bilateral cataract surgery in about 2010. Dental implants 7. [place] teeth extraction 1 in his 20s. Cardiovascular Surgical History: Reports: None. Denies: Varicose Respiratory Surgical History: Reports: None. Denies: Thoracentesis GI Surgical History: Reports: Colon, Colonoscopy, EGD, Hernia, Inguinal, Hernia Repair/Other, Polypectomy, Other (See Below). Denies: Appendectomy, Cholecystectomy, ERCP, Hernia, Abdominal Other GI Surgeries/Procedures: Umbilical and right inguinal hernia repair on . Last EGD and colonoscopy on 10/22/16. EGD on 04/15/16 showed bleeding duodenal ulcer which required post cauterization and clipping. Colonoscopy on 08/16. Left inguinal hernia repair in about 1968. Male Surgical History: Reports: Nephrectomy, Other (See Below). Denies: Circumcision, TURP-Transurethral Resection of Prostate, Vasectomy Other Male Surgeries/Procedures: Right kidney donation for his on 1997. Endocrine Surgical History: Reports: None. Denies: Thyroid Biopsy Neurological Surgical History: Reports: None. Denies: C-Spine, Discectomy, Laminectomy, Lumbar Spine, Sacral Spine, Spinal Fusion, Vertebroplasty Musculoskeletal Surgical History: Reports: None. Denies: Arthroscopic Procedure , Carpal Tunnel, Ganglion Cyst, Joint Replacement, ORIF, Shoulder Surgery Oncologic Surgical History: Reports: None. Denies: Bone Marrow Aspiration Dermatological Surgical History: Reports: Other (See Below) Other Dermatological Surgeries/Procedures: Excision of benign lipoma from the right on 10/06/18 - Past Imaging History Past Imaging History: Reports: Cardiac Echo (Last echocardiogram on 11/22/18 with ejection fraction of 6065 percent and findings as above. Previous echocardiogram on 07/27/15.), Carotid US (Last on 05/24/08.), CAT Scan (CT of the head on 11/13/17. CT of the abdomen and pelvis on 04/15/[address] of the sinuses on 10/07/09.), PFT (Last on 04/21/05), Stress Testing (Last Cardiolite stress test on 01/08/05 with ejection fraction of 53%.), Ultrasound (Right upper quadrant abdominal ultrasound on 04/15/16. Ultrasound of the abdominal aorta on 05/21/08.), Upper GI X-Ray/Series (12/12/01), Other (See Below) (Flexible sigmoidoscopy on ) Social & Family History - Family History HEENT: Reports: None. Denies: Allergic Rhinitis, Glaucoma, Macular Degeneration , Retinal Detachment Cardiac: Reports: Afib, Arrhythmia, CAD, Cardiomyopathy, Heart Failure, Hypertension, [place], Other (See Below). Denies: Aneurysm, Blood Clots/VTE/DVT, Bypass, High Cholesterol, PVD/COD, Stent, Syncope Other Cardiac Family History: Maternal grandfather with fatal W[place] at age 75, maternal aunt with fatal [place] at age 65, maternal uncle with coronary artery disease, mother and maternal aunt with unknown type of arrhythmia, mother with CHF in her 70s and fatal atrial fibrillation/CHF at age 91, hypertension in parents Respiratory: Reports: None. Denies: Asthma, COPD, PE, Sleep Apnea GI: Reports: GI bleed, PUD, Other (See Below). Denies: Celiac Disease, Cholelithiasis, Colon Polyps, GERD, Inflammatory Bowel Disease, Irritable Bowel Syndrome Other GI Family History: Sister with bleeding duodenal ulcer in her late 60s : Reports: Dialysis, Renal Disease/Insufficiency, Other (See Below) Other Family History: Maternal aunt with dialysis and fatal renal disease in her 80s OBGYN: Reports: None. Denies: Endometriosis, Recurrent Spontaneous Musculoskeletal: Reports: None. Denies: Arthritis, Gout, RA, SLE Neurological: Reports: CVA, Other (See Below). Denies: Alzheimers Disease, Cerebral Aneurysms, Dementia, Migraines, MS, Neuropathy, Peripheral, Parkinson's , Seizure, TIA Other Neurological Family History: Mother with recurrent CVA, father with history of Guillian Loja syndrome Psychiatric: Reports: None. Denies: Abuse, Victim of, ADD, ADHD, Anxiety, Depression, Psych Hospitalization(s), Psychosis, Suicide Attempt Endocrine/Metabolic: Reports: None. Denies: Diabetes, Type I, Diabetes, type II , Hypothyroidism, IDDM Hematologic: Reports: None. Denies: SLE Immunologic: Reports: None. Denies: AIDS, HIV, SLE Dermatologic: Reports: None. Denies: Angiodema, Eczema, Psoriasis Oncologic: Reports: Leukemia, Other (See Below). Denies: Colon, Hodgkin's Lymphoma, Lymphoma, Non-Hodgkin's Lymphoma, Skin Other Oncologic Family History: Maternal uncle with fatal possible stomach cancer at age 94 with initial diagnosis in his 70s, brother with fatal AML at age 46 - Tobacco Use Smoking Status *Q: Former Smoker Tobacco Use Within Last Twelve Months: No Years of Tobacco use: 12 Packs/Tins Daily: 2 Packs/Tins Daily Comment: Smoked cigarettes between ages 16 and 26 with maximum use of 2 packs per day. Note subsequent pipe use between ages 26 and 28. Used Tobacco, but Quit: Yes Smoking Cessation Information Provided To Patient: No Second Hand Smoke Exposure: No Second Hand Smoke Education Provided: No - Caffeine Use Caffeine Use: Reports: Coffee (2 cups per day), Tea (1 Glass of iced tea per day ). Denies: Energy Drinks, Soda - Alcohol Use Alcohol Use History: No Days Per Week of Alcohol Use: 0 Number of Drinks Per Day: 0 Number of Drinks Per Day Comment: No previous DWIs, problems with alcohol abuse , etc. 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 ) ED ROS GENERAL - Review of Systems Review Of Systems: ROS reveals no pertinent complaints other than HPI. ED EXAM, GENERAL - Physical Exam Exam: See Below Exam Limited By: No Limitations General Appearance: Alert, WD/WN, No Apparent Distress, Moderate Distress Eye Exam: Left Eye: EOMI, Normal Inspection (No nystagmus. Patient wearing glasses.), Bilateral Eye: PERRL Ears: Normal External Exam, Normal Canal, Normal TMs, Hearing Loss (Moderate bilateral presbycusis with no hearing aid therapy.) Nose: Normal Inspection, Normal Mucosa, No Blood Throat/Mouth: Normal Inspection, Normal Lips, Normal Teeth, Normal Gums, Normal Oropharynx, Normal Voice, No Airway Compromise, Other (small torus palatinus). No: Dysphagia, Perioral Cyanosis Head: Atraumatic, Normocephalic. No: Facial Swelling, Facial Tenderness, Sinus Tenderness Neck: Supple, Non-Tender, Full Range of Motion, Carotid Bruit (Mild bilateral carotid bruits). No: Lymphadenopathy (L), Lymphadenopathy (R), Thyromegaly Respiratory/Chest: No Respiratory Distress, No Accessory Muscle Use, Chest Non- Tender, Decreased Breath Sounds (Right base secondary to elevated diaphragm), Rales (Mild bilateral basilar). No: Pleural Rub, Retractions Cardiovascular: Normal Peripheral Pulses, No Gallop, No JVD, No Murmur, No Rub, Bradycardia (Moderate). No: No Edema (Borderline dependent edema as below), Diastolic Murmur (Aortic insufficiency murmur not appreciated), Gallop/S3, Gallop/S4, Extra Beats (None at time of exam) Peripheral Pulses: 2+: Radial (L), Radial (R), Dorsalis Pedis (L), Dorsalis Pedis (R) GI/Abdominal: Normal Bowel Sounds, Soft, Non-Tender, No Organomegaly, No Distention, No Abnormal Bruit, No Mass, Pelvis Stable. No: Guarding, Rebound, Tender (Male) Exam: Deferred Rectal (Males) Exam: Deferred Back Exam: Normal Inspection, Full Range of Motion. No: CVA Tenderness (L), CVA Tenderness (R), Muscle Spasm Extremities: Normal Range of Motion, Non-Tender, Normal Capillary Refill, Pedal Edema (Trace bilateral pedal/pretibial edema). No: Sagar's Sign Neurological: Alert, Oriented, CN II-XII Intact, Normal Cognition, Normal Gait, Normal Reflexes (Negative Babinski's), No Motor/Sensory Deficits Psychiatric: Normal Affect, Normal Mood Skin Exam: Warm, Intact, Normal Color, No Rash, Diaphoretic. No: Jaundice, Pallor, Petechiae, Wound/Incision Lymphatic: No Adenopathy EKG INTERPRETATION EKG Date: 01/16/19 Time: 00:18 Rhythm: Other (Moderate sinus bradycardia) Rate (Beats/Min): 42 [place]: Normal P-Wave: Present QRS: RBBB (QRS interval of 0.13 seconds representing a complete right bundle branch block) ST-T: Other (Reversal of previous T-wave inversions in leads V1 through V4 since last EKG on 01/14/18) QT: Normal MT/PQ Interval: 0.20 seconds representing a borderline first-degree AV block Comparison: Change From Previous EKG (As above) EKG Interpretation Comments: 1. Possible anterior wall cardiac ischemia (T-wave reversal as above) 2. Complete right bundle branch block 3. Sinus bradycardia Repeat EKG at 0:57 hours shows U waves in leads V2 and V3 with new T-wave inversion in lead aVL Course - Vital Signs Last Recorded V/S: Last Vital Signs Temp 36.4 C 01/16/19 00:48 Pulse 50 L 01/16/19 04:55 Resp 17 01/16/19 04:55 BP 122/66 01/16/19 04:55 Pulse Ox 100 01/16/19 04:55 Vital Signs - 24 hr 01/16/19 01/16/19 01/16/19 00:48 01:03 01:18 Temperature [ 36.4 C Temporal] Pulse, 68 41 L 38 L Peripheral [ Left Pulse Oximetry] Respiratory 20 18 15 Rate Blood Pressure 166/89 H 92/53 L 60/24 L [Right Upper Arm] O2 Sat by Pulse 99 95 99 Oximetry 01/16/19 01/16/19 01/16/19 01:33 01:48 02:03 Temperature [ Temporal] Pulse, 43 L 59 L 51 L Peripheral [ Left Pulse Oximetry] Respiratory 19 21 H 17 Rate Blood Pressure 68/29 L 124/67 153/75 H [Right Upper Arm] O2 Sat by Pulse 100 100 100 Oximetry 01/16/19 01/16/19 01/16/19 02:21 02:33 02:48 Temperature [ Temporal] Pulse, 48 L 52 L 53 L Peripheral [ Left Pulse Oximetry] Respiratory 21 H 20 20 Rate Blood Pressure 127/72 117/54 L 142/82 H [Right Upper Arm] O2 Sat by Pulse 100 100 100 Oximetry 01/16/19 01/16/19 01/16/19 03:27 03:34 03:48 Temperature [ Temporal] Pulse, 52 L 47 L 46 L Peripheral [ Left Pulse Oximetry] Respiratory 16 14 Rate Blood Pressure 131/87 147/81 H 137/67 [Right Upper Arm] O2 Sat by Pulse 100 100 100 Oximetry 01/16/19 01/16/19 01/16/19 04:04 04:18 04:33 Temperature [ Temporal] Pulse, 44 L 45 L 46 L Peripheral [ Left Pulse Oximetry] Respiratory 19 17 15 Rate Blood Pressure 131/78 119/86 141/88 H [Right Upper Arm] O2 Sat by Pulse 100 100 100 Oximetry 01/16/19 04:55 Temperature [ Temporal] Pulse, 50 L Peripheral [ Left Pulse Oximetry] Respiratory 17 Rate Blood Pressure 122/66 [Right Upper Arm] O2 Sat by Pulse 100 Oximetry - Orders/Labs/Meds Orders: Active Orders 24 hr Category Date Time Status Cardiac Monitoring [RC] . DIRECTED Care 01/16/19 01:15 Active EKG Documentation Completion [RC] ASDIRECTED Care 01/16/19 01:15 Active EKG Documentation Completion [RC] ASDIRECTED Care 01/16/19 01:57 Active Oxygen Therapy, ED [RC] CONTINUOUS Care 01/16/19 01:15 Active Peripheral IV Care [RC] . DIRECTED Care 01/16/19 01:15 Active Peripheral IV Care [RC] . DIRECTED Care 01/16/19 01:18 Active Pulse Oximetry [RC] CONTINUOUS Care 01/16/19 01:15 Active Up With Assistance [RC] PFP Care 01/16/19 01:15 Active Vital Signs [RC] PFP Care 01/16/19 01:15 Active Nothing per Oral Now Diet [DIET] Diet 01/16/19 Breakfast Active CTA Abd Pelv w Cont [CT] Stat Exams 01/16/19 03:01 Taken Chest 1V Frontal [CR] Stat Exams 01/16/19 01:15 Taken Chest PE [Ang Chest] [CT] Stat Exams 01/16/19 02:18 Ordered CULTURE BLOOD [BC] Stat Lab 01/16/19 01:20 Stop Req Nitroglycerin/D5W [Nitroglycerin 25 MG/D5W 250 ML] Med 01/16/19 01:30 Active 25 mg in 250 ml IV TITRATE Norepinephrine [Levophed] 4 mg Med 01/16/19 01:45 Active Dextrose 5% in Water 246 ml IV TITRATE Sodium Chloride 0.9% [Normal Saline] 1,000 ml Med 01/16/19 01:30 Active IV ASDIRECTED Sodium Chloride 0.9% [Normal Saline] 1,000 ml Med 01/16/19 02:00 Active IV ASDIRECTED Sodium Chloride 0.9% [Saline Flush] Med 01/16/19 01:15 Active 10 ml FLUSH ASDIRECTED PRN Sodium Chloride 0.9% [Saline Flush] Med 01/16/19 01:18 Active 10 ml FLUSH ASDIRECTED PRN Obtain Past Medical Record [OM.PC] Urgent Oth 01/16/19 01:15 Active Peripheral IV Insertion Adult [OM.PC] Stat Ot 01/16/19 01:15 Ordered Peripheral IV Insertion Adult [OM.PC] Stat Ot 01/16/19 01:18 Ordered Resuscitation Status Stat Resus Stat 01/16/19 01:15 Ordered Medication Orders Nitroglycerin/Dextrose (Nitroglycerin 25 Mg/D5w 250 Ml) 25 mg in 250 mls @ 1.5 mls/hr IV TITRATE OSCAR; Protocol Last Admin: 01/16/19 01:58 Dose: 2.5 mcg/min, 1.5 mls/hr Sodium Chloride (Normal Saline) 1,000 mls @ 50 mls/hr IV ASDIRECTED OSCAR Last Admin: 01/16/19 01:44 Dose: 50 mls/hr Norepinephrine Bitartrate 4 mg (/ Dextrose/Water) 250 mls @ 7.5 mls/hr IV TITRATE OSCAR; Protocol Last Admin: 01/16/19 01:38 Dose: 2 mcg/min, 7.5 mls/hr Sodium Chloride (Normal Saline) 1,000 mls @ 100 mls/hr IV ASDIRECTED OSCAR Last Admin: 01/16/19 01:58 Dose: 100 mls/hr Sodium Chloride (Saline Flush) 10 ml FLUSH ASDIRECTED PRN PRN Reason: Keep Vein Open Sodium Chloride (Saline Flush) 10 ml FLUSH ASDIRECTED PRN PRN Reason: Keep Vein Open Labs: Laboratory Tests 01/16/19 01/16/19 01/16/19 Range/Units 01:20 01:20 01:20 WBC 24.3 H (4.0-10.2) K/uL RBC 4.22 L (4.33-5.41) M/uL Hgb 13.5 (13.1-16.8) g/dL Hct 42.3 (39.0-49.0) % MCV 100.2 H (84.0-98.0) fL MCH 32.0 (28.2-33.3) pg MCHC 31.9 (31.7-36.0) g/dL RDW 13.2 (11.2-14.1) % Plt Count 249 (150-350) K/uL Neut % (Auto) 19.5 L (45.0-80.0) % Lymph % (Auto) 73.9 H (10.0-50.0) % [place] % (Auto) 4.5 (2.0-14.0) % Eos % (Auto) 1.9 (0.0-5.0) % Baso % (Auto) 0.2 (0.0-2.0) % Neut # (Auto) 4.74 (1.40-7.00) K/uL Lymph # (Auto) 17.94 H (0.50-3.50) K/uL [place] # (Auto) 1.09 H (0.00-1.00) K/uL Eos # (Auto) 0.45 (0.00-0.50) K/uL Baso # (Auto) 0.04 (0.00-0.20) K/uL PT 10.5 (9.5-12.0) SEC INR 1.0 APTT 24.3 (21.0-31.3) SEC D-Dimer, Quantitative 407 H (0-400) ng/mL Sodium (136-145) mmol/L Potassium (3.5-5.1) mmol/L Chloride (98-107) mmol/L Carbon Dioxide (21.0-32.0) mmol/L BUN (7-18) mg/dL Creatinine (0.51-1.17) mg/dL Est Cr Clr Drug Dosing mL/min Estimated GFR (MDRD) mL/min Glucose (74-106) mg/dL Lactic Acid (0.4-2.0) mmol/L Uric Acid (2.6-7.2) mg/dL Calcium (8.5-10.1) mg/dL Magnesium (1.8-2.4) mg/dL Total Bilirubin (0.2-1.0) mg/dL AST (15-37) U/L ALT (12-78) U/L Alkaline Phosphatase (46-116) IU/L Creatine Kinase (26-308) U/L Creatine Kinase Index (0.0-2.5) % CK-MB (CK-2) (0.00-3.60) ng/mL Troponin I (0.000-0.056) ng/mL NT-Pro-B Natriuret Pep (0-125) pg/mL Total Protein (6.4-8.2) g/dL Albumin (3.4-5.0) g/dL Amylase (25-115) U/L Lipase (73-393) U/L TSH, Ultra Sensitive (0.358-3.740) mIU/mL 01/16/19 01/16/19 01/16/19 Range/Units 01:20 01:20 01:20 WBC (4.0-10.2) K/uL RBC (4.33-5.41) M/uL Hgb (13.1-16.8) g/dL Hct (39.0-49.0) % MCV (84.0-98.0) fL MCH (28.2-33.3) pg MCHC (31.7-36.0) g/dL RDW (11.2-14.1) % Plt Count (150-350) K/uL Neut % (Auto) (45.0-80.0) % Lymph % (Auto) (10.0-50.0) % [place] % (Auto) (2.0-14.0) % Eos % (Auto) (0.0-5.0) % Baso % (Auto) (0.0-2.0) % Neut # (Auto) (1.40-7.00) K/uL Lymph # (Auto) (0.50-3.50) K/uL [place] # (Auto) (0.00-1.00) K/uL Eos # (Auto) (0.00-0.50) K/uL Baso # (Auto) (0.00-0.20) K/uL PT (9.5-12.0) SEC INR APTT (21.0-31.3) SEC D-Dimer, Quantitative (0-400) ng/mL Sodium 140 (136-145) mmol/L Potassium 4.0 (3.5-5.1) mmol/L Chloride 105 (98-107) mmol/L Carbon Dioxide 28.4 (21.0-32.0) mmol/L BUN 15 (7-18) mg/dL Creatinine 1.51 H (0.51-1.17) mg/dL Est Cr Clr Drug Dosing 45.02 mL/min Estimated GFR (MDRD) 45 mL/min Glucose 124 H (74-106) mg/dL Lactic Acid 1.5 (0.4-2.0) mmol/L Uric Acid 4.5 (2.6-7.2) mg/dL Calcium 8.6 (8.5-10.1) mg/dL Magnesium 1.9 (1.8-2.4) mg/dL Total Bilirubin 0.2 (0.2-1.0) mg/dL AST 17 (15-37) U/L ALT 21 (12-78) U/L Alkaline Phosphatase 64 (46-116) IU/L Creatine Kinase 45 (26-308) U/L Creatine Kinase Index 2.4 (0.0-2.5) % CK-MB (CK-2) 1.10 (0.00-3.60) ng/mL Troponin I 0.012 (0.000-0.056) ng/mL NT-Pro-B Natriuret Pep 144 H (0-125) pg/mL Total Protein 6.2 L (6.4-8.2) g/dL Albumin 2.3 L (3.4-5.0) g/dL Amylase 83 (25-115) U/L Lipase 273 (73-393) U/L TSH, Ultra Sensitive 3.305 (0.358-3.740) mIU/mL Meds: Medications Generic Name Dose Route Start Last Admin Trade Name Freq PRN Reason Stop Dose Admin Nitroglycerin/Dextrose 25 mg in 250 mls @ 1.5 mls/hr 01/16/19 01:30 01/16/19 01:58 Nitroglycerin 25 Mg/D5w 250 Ml IV 2.5 mcg/min TITRATE OSCAR 1.5 mls/hr Administration Protocol 2.5 MCG/MIN Sodium Chloride 1,000 mls @ 50 mls/hr 01/16/19 01:30 01/16/19 01:44 Normal Saline IV 50 mls/hr ASDIRECTED OSCAR Administration Norepinephrine Bitartrate 4 mg 250 mls @ 7.5 mls/hr 01/16/19 01:45 01/16/19 01:38 / Dextrose/Water IV 2 mcg/min TITRATE OSCAR 7.5 mls/hr Administration Protocol 2 MCG/MIN Sodium Chloride 1,000 mls @ 100 mls/hr 01/16/19 02:00 01/16/19 01:58 Normal Saline IV 100 mls/hr ASDIRECTED OSCAR Administration Sodium Chloride 10 ml 01/16/19 01:15 Saline Flush FLUSH ASDIRECTED PRN Keep Vein Open Sodium Chloride 10 ml 01/16/19 01:18 Saline Flush FLUSH ASDIRECTED PRN Keep Vein Open Discontinued Medications Generic Name Dose Route Start Last Admin Trade Name Freq PRN Reason Stop Dose Admin Aspirin 324 mg 01/16/19 01:15 01/16/19 01:30 Aspirin CHEW 01/16/19 01:16 324 mg ONETIME ONE Administration Famotidine 40 mg 01/16/19 01:15 01/16/19 01:29 Pepcid IVPUSH 01/16/19 01:16 40 mg ONETIME ONE Administration Fentanyl 50 mcg 01/16/19 02:20 01/16/19 02:23 Sublimaze IVPUSH 01/16/19 02:21 50 mcg ONETIME ONE Administration Fentanyl 100 mcg 01/16/19 04:46 01/16/19 04:49 Sublimaze IVPUSH 01/16/19 04:47 100 mcg ONETIME ONE Administration Lactated Ringer's 1,000 mls @ 999 mls/hr 01/16/19 01:17 01/16/19 01:32 Ringers, Lactated IV 01/16/19 02:17 999 mls/hr .BOLUS ONE Administration Iopamidol 100 ml 01/16/19 03:00 01/16/19 03:50 Isovue-370 (76%) IVPUSH 01/16/19 03:01 100 ml ONETIME ONE Administration Morphine Sulfate 1 mg 01/16/19 01:52 01/16/19 01:56 Morphine IVPUSH 01/16/19 01:53 1 mg ONETIME ONE Administration Morphine Sulfate 2 mg 01/16/19 02:07 01/16/19 02:10 Morphine IVPUSH 01/16/19 02:08 2 mg ONETIME ONE Administration Ondansetron HCl 4 mg 01/16/19 01:28 01/16/19 01:31 Zofran IVPUSH 01/16/19 01:29 4 mg ONETIME ONE Administration Pantoprazole Sodium 40 mg 01/16/19 01:50 01/16/19 01:53 Protonix Iv IVPUSH 01/16/19 01:51 40 mg ONETIME ONE Administration Ticagrelor 180 mg 01/16/19 01:15 01/16/19 01:30 Brilinta PO 01/16/19 01:16 180 mg ONETIME ONE Administration - Radiology Interpretation Free Text/Narrative:: monitoring and evaluation advisor showed a showed normal sinus rhythm in the 60s to 70 initially on arrival with subsequent development of severe bradycardia with heart rate as low as 29 and averaging in the 30s to low 40s prior to initiation of IV norepinephrine. In addition, frequent PVCs with some brief episodes of recurrent bigeminy during initial phases of norepinephrine infusion. Patient's pulses improved to the 40-50s with significantly improved arrhythmia prior to transfer. Chest x-ray, portable, shows evidence of stable moderately elevated right hemidiaphragm, COPD, and mild fibrosis with mild centralized CHF and/or pulmonary hypertension. No pneumothorax, cardiomegaly, or pulmonary infiltrates. No free air noted. Telephone consultation at 04:40 hours with the radiology department at [facility]. Preliminary verbal report of CTA of the chest and abdomen with no direct evidence of an aortic aneurysm or thoracic aortic dissection, however subtle dissection of the abdominal aorta cannot be ruled out secondary to suboptimal films secondary to tech error per the radiologist. CT Results Date: 01/16/19 CT Results Time: 04:40 Departure - Departure Time of Disposition: 05:05 Disposition: DC/Tfer to Acute Hospital 02 Condition: Fair Clinical Impression: Hypotension, Bradycardia, Hypertension, PVCs (premature ventricular contractions), Renal insufficiency, Gastroesophageal reflux disease, D-dimer, elevated, CHF (congestive heart failure), CLL (chronic lymphocytic leukemia), Hypoalbuminemia - Discharge Information *PRESCRIPTION DRUG MONITORING PROGRAM REVIEWED*: Not Applicable *COPY OF PRESCRIPTION DRUG MONITORING REPORT IN PATIENT LAURIE: Not Applicable Referrals: Luis Colón PA [Primary Care Provider] - Forms: ED Department Discharge, Interfacility Transfer EMTALA - Problem List & Annotations (1) Hypotension SNOMED Code(s): 48579841 Code(s): I95.9 - HYPOTENSION, UNSPECIFIED Status: Acute Priority: High Onset Date: 01/16/19 Annotation/Comment:: Note the patient's blood pressure was initially on 166/89 upon initial presentation to the emergency room with subsequent development of severe hypotension, bradycardia, diaphoresis, and nausea shortly after my arrival to the emergency room. Symptoms were refractory to initiation of lactated Ringer's IV bolus with subsequent initiation of IV norepinephrine with improvement of his hypotension and bradycardia with this therapy. Secondary to differential diagnosis of possible unstable angina patient was also started on a low-dose IV nitroglycerin infusion once his blood pressure had improved, although his symptoms not improve significantly with the nitroglycerin infusion. No development of some brief periods of bigeminy after initiation of IV norepinephrine. Lactated Ringer's was changed to normal saline for medication compatibility. Telephone consultation at 02:[address] Null, enterprise application architect at [facility], who does accept the patient for direct admission. Per his request a CTA of the chest and abdomen were conducted to rule out a dissecting aortic aneurysm with hospital transfer somewhat delayed secondary to delay in receiving verbal report from the radiologist. Note Internet transmission problems, etc., which did delay evaluation. No sequelae from this delay in hospital transfer with vital signs improved and stable at time of discharge. Qualifiers: Hypotension type: unspecified hypotension type Qualified Code(s): I95.9 - Hypotension, unspecified (2) CHF (congestive heart failure) SNOMED Code(s): 15622141 Code(s): I50.9 - HEART FAILURE, UNSPECIFIED Status: Acute Priority: High Onset Date: 01/16/19 Annotation/Comment:: Mild BNP elevation and mostly mild centralized CHF by chest x-ray likely secondary to his severe bradycardia and hypotension. Note recent normal echocardiogram on 11/22/18 with excellent ejection fraction of 60-65% at that time. He did present with atypical abdominal /epigastric pain representing possible atypical angina. Chest pain protocol was initiated upon patient's arrival to the emergency room. Both IV Pepcid and IV Protonix were given secondary to his refractory symptoms. Note that patient's symptoms did not improve with 2 doses of IV morphine with subsequent IV fentanyl therapy required as above. No direct evidence of acute GI bleed with abdominal pain not reproducible by physical exam. EKG shows nonspecific finding secondary to his complete right bundle branch block, although note reversal of anterior wall T wave inversions as above with EKGs 2 obtained. Qualifiers: Heart failure type: unspecified Heart failure chronicity: acute Qualified Code(s): I50.9 - Heart failure, unspecified (3) PVCs (premature ventricular contractions) SNOMED Code(s): 44348670 Code(s): I49.3 - VENTRICULAR PREMATURE DEPOLARIZATION Status: Chronic Priority: High Annotation/Comment:: Brief periods of bigeminy with severe hypotension as above. Note known history of this arrhythmia in the past, however not to this degree. (4) Chronic lymphocytic leukemia SNOMED Code(s): 34106519 Code(s): C91.90 - LYMPHOID LEUKEMIA, UNSPECIFIED NOT HAVING ACHIEVED REMISSION Status: Chronic Priority: Medium Annotation/Comment:: Currently under observation program with no previous oncology treatment, chemotherapy, bone marrow needle aspiration biopsy, therapy, etc. Note significant progression of his lymphocytosis today with consideration of oncology referral by accepting providers. (5) D-dimer, elevated SNOMED Code(s): 314048000 Code(s): R79.89 - OTHER SPECIFIED ABNORMAL FINDINGS OF BLOOD CHEMISTRY Status: Acute Priority: High Onset Date: 01/16/19 Annotation/Comment:: CTA of the chest and abdomen results as above. (6) Gastroesophageal reflux disease SNOMED Code(s): 016412177 Code(s): K21.9 - GASTRO-ESOPHAGEAL REFLUX DISEASE WITHOUT ESOPHAGITIS Status: Chronic Priority: Medium Annotation/Comment:: High-dose IV Pepcid initially given as GI prophylaxis with additional IV Protonix subsequently required secondary to refractory symptoms as above. Qualifiers: Esophagitis presence: without esophagitis Qualified Code(s): K21.9 - Gastro -esophageal reflux disease without esophagitis (7) Bradycardia SNOMED Code(s): 99617410 Code(s): R00.1 - BRADYCARDIA, UNSPECIFIED Status: Chronic Priority: Medium Annotation/Comment:: Previous history of bradycardia with the patient not taking any medications causing this problem. Significant bradycardia with heart rate as low as the high 20s with secondary hypotension, etc. as above. Patient does have a previous history of bradycardia to the 40s with cardiology evaluation at that time per medical records. Consider cardiology consultation by accepting providers. 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 Subsequent development of severe hypotension, etc. as above. Observe closely by accepting provider. Qualifiers: Hypertension type: essential hypertension Qualified Code(s): I10 - Essential (primary) hypertension (10) Hypoalbuminemia SNOMED Code(s): 001030634 Code(s): E88.09 - OTH DISORDERS OF PLASMA-PROTEIN METABOLISM, NEC Status: Chronic Priority: Medium Annotation/Comment:: Observe for now. - Problem List Review Problem List Initiated/Reviewed/Updated: Yes - My Orders Last 24 Hours: My Active Orders 01/16/19 01:15 Cardiac Monitoring [RC] . DIRECTED EKG Documentation Completion [RC] ASDIRECTED Oxygen Therapy, ED [RC] CONTINUOUS Peripheral IV Care [RC] . DIRECTED Pulse Oximetry [RC] CONTINUOUS Up With Assistance [RC] PFP Vital Signs [RC] PFP Chest 1V Frontal [CR] Stat Sodium Chloride 0.9% [Saline Flush] 10 ml FLUSH ASDIRECTED PRN Obtain Past Medical Record [OM.PC] Urgent Peripheral IV Insertion Adult [OM.PC] Stat Resuscitation Status Stat 01/16/19 01:18 Peripheral IV Care [RC] . DIRECTED Sodium Chloride 0.9% [Saline Flush] 10 ml FLUSH ASDIRECTED PRN Peripheral IV Insertion Adult [OM.PC] Stat 01/16/19 01:20 CULTURE BLOOD [BC] Stat 01/16/19 01:30 Nitroglycerin/D5W [Nitroglycerin 25 MG/D5W 250 ML] 25 mg in 250 ml IV TITRATE Sodium Chloride 0.9% [Normal Saline] 1,000 ml IV ASDIRECTED 01/16/19 01:45 Norepinephrine [Levophed] 4 mg Dextrose 5% in Water 246 ml IV TITRATE 01/16/19 01:57 EKG Documentation Completion [RC] ASDIRECTED 01/16/19 02:00 Sodium Chloride 0.9% [Normal Saline] 1,000 ml IV ASDIRECTED 01/16/19 02:18 Chest PE [Ang Chest] [CT] Stat 01/16/19 03:01 CTA Abd Pelv w Cont [CT] Stat 01/16/19 Breakfast Nothing per Oral Now Diet [DIET] - Assessment/Plan Last 24 Hours: My Active Orders 01/16/19 01:15 Cardiac Monitoring [RC] . DIRECTED EKG Documentation Completion [RC] ASDIRECTED Oxygen Therapy, ED [RC] CONTINUOUS Peripheral IV Care [RC] . DIRECTED Pulse Oximetry [RC] CONTINUOUS Up With Assistance [RC] PFP Vital Signs [RC] PFP Chest 1V Frontal [CR] Stat Sodium Chloride 0.9% [Saline Flush] 10 ml FLUSH ASDIRECTED PRN Obtain Past Medical Record [OM.PC] Urgent Peripheral IV Insertion Adult [OM.PC] Stat Resuscitation Status Stat 01/16/19 01:18 Peripheral IV Care [RC] . DIRECTED Sodium Chloride 0.9% [Saline Flush] 10 ml FLUSH ASDIRECTED PRN Peripheral IV Insertion Adult [OM.PC] Stat 01/16/19 01:20 CULTURE BLOOD [BC] Stat 01/16/19 01:30 Nitroglycerin/D5W [Nitroglycerin 25 MG/D5W 250 ML] 25 mg in 250 ml IV TITRATE Sodium Chloride 0.9% [Normal Saline] 1,000 ml IV ASDIRECTED 01/16/19 01:45 Norepinephrine [Levophed] 4 mg Dextrose 5% in Water 246 ml IV TITRATE 01/16/19 01:57 EKG Documentation Completion [RC] ASDIRECTED 01/16/19 02:00 Sodium Chloride 0.9% [Normal Saline] 1,000 ml IV ASDIRECTED 01/16/19 02:18 Chest PE [Ang Chest] [CT] Stat 01/16/19 03:01 CTA Abd Pelv w Cont [CT] Stat 01/16/19 Breakfast Nothing per Oral Now Diet [DIET] Assessment:: As above Plan: As above. Extensive precautions were given to the patient, who is in agreement with the treatment plan. Ambulance transfer to [place] with accounts payable specialist accompaniment as above
[2019-01-16] MEDS: Famotidine 20 MG/2 ML SDV IVPUSH ONE (01:29)
[2019-01-16] MEDS: Ticagrelor 90 MG Tab PO ONE (01:30)
[2019-01-16] MEDS: Aspirin 81 MG Tab.Chew CHEW ONE (01:30)
[2019-01-16] MEDS: Ondansetron 4 MG/2 ML SDV IVPUSH ONE (01:31)
[2019-01-16] MEDS: Lactated Ringers 1,000 ML IV ONE (01:32)
[2019-01-16] MEDS: Norepinephrine 4 MG in Dextrose 5% in Water 246 ML IV SCH ×2 (01:38)
[2019-01-16] MEDS: Sodium Chloride 0.9% 1,000 ML IV SCH ×2 (01:44→01:58)
[2019-01-16] MEDS: Pantoprazole 40 MG Vial IVPUSH ONE (01:53)
[2019-01-16] MEDS: Morphine 2 MG/ML Syringe IVPUSH ONE ×2 (01:56→02:10)
[2019-01-16] MEDS: Nitroglycerin/D5W 25 MG/250 ML BOTTLE IV SCH (01:58)
[2019-01-16] MEDS: fentaNYL 100 MCG/2 ML SDV IVPUSH ONE ×2 (02:23→04:49)
[2019-01-16] MEDS: Iopamidol 755 Mg/ML 100 ML Bottle IVPUSH ONE (03:50)
[2019-01-16 04:56] VITALS: BP 122/66
== END 2019-01-16 05:10 ==
LOC: LL.ED 00:47
DX: I95.9 Hypotension, unspecified (principal); K21.9 Gastro-esophageal reflux disease without esophagitis; I49.3 Ventricular premature depolarization; I13.0 Hypertensive heart and chronic kidney disease with heart failure and stage 1 through stage 4 chronic kidney disease, or unspecified chronic kidney disease; I50.9 Heart failure, unspecified; N18.9 Chronic kidney disease, unspecified; C91.10 Chronic lymphocytic leukemia of B-cell type not having achieved remission; R79.89 Other specified abnormal findings of blood chemistry; E88.09 Other disorders of plasma-protein metabolism, not elsewhere classified; Z98.42 Cataract extraction status, left eye; Z98.41 Cataract extraction status, right eye; Z88.0 Allergy status to penicillin; Z88.8 Allergy status to other drugs, medicaments and biological substances; Z87.891 Personal history of nicotine dependence
CPT/HCPCS: 36415; 71045; 71275; 74174; 80053; 82150; 82550; 82553; 83605; 83690; 83735; 83880; 84443; 84484; 84550; 85025; 85379; 85610; 85730; 87040; 93005; 96365; 96366; 96375; 96376; 99285-25; A9270-GY; C9113; J2270; J2405; J3010; J3490; J7030; J7060; J7120; Q9967

== ENCOUNTER 2024-02-09 19:57 | Emergency (ER) | payer MEDICARE, OTHER ==
[2024-02-09] MEDS ORDERED: Sodium Chloride 0.9% 10 ML Syringe FLUSH PRN (20:06)
[2024-02-09 20:36] LABS: BASOPHILS ABSOLUTE AUTO 0.05 K/uL (0.00-0.20); BASOPHILS PERCENT AUTO 0.1 % (0.0-2.0); EOSINOPHILS ABSOLUTE AUTO 0.12 K/uL (0.00-0.50); EOSINOPHILS PERCENT AUTO 0.2 % (0.0-5.0); HEMATOCRIT 40.7 % (39.0-49.0); HEMOGLOBIN 12.8 g/dL (13.1-16.8); LYMPHOCYTES ABSOLUTE AUTO 65.11 K/uL (0.50-3.50); LYMPHOCYTES PERCENT AUTO 87.1 % (10.0-50.0); MEAN CORPUSCULAR HEMOGLOBIN 31.9 pg (28.2-33.3); MEAN CORPUSCULAR HGB CONC 31.4 g/dL (31.7-36.0); MEAN CORPUSCULAR VOLUME 101.5 fL (84.0-98.0); MONOCYTES ABSOLUTE AUTO 1.66 K/uL (0.00-1.00); MONOCYTES PERCENT AUTO 2.2 % (2.0-14.0); NEUTROPHILS ABSOLUTE AUTO 7.78 K/uL (1.40-7.00); NEUTROPHILS PERCENT AUTO 10.4 % (45.0-80.0); PLATELET COUNT,PLT 273 K/uL (150-350); RED BLOOD CELL COUNT 4.01 M/uL (4.33-5.41); RED CELL DISTRIBUTION WIDTH 14.2 % (11.2-14.1)
[2024-02-09 20:49] LABS: ALANINE AMINOTRANSFERASE,ALT 20 U/L (12-78); ALBUMIN 3.3 g/dL (3.4-5.0); ALKALINE PHOSPHATASE 65 IU/L (46-116); ANION GAP 7.3 meq/L (7-15); ASPARTATE AMNIOTRANSFERASE,AST 15 U/L (15-37); BILIRUBIN TOTAL 0.3 mg/dL (0.2-1.0); BLOOD UREA NITROGEN,BUN 21 mg/dL (7-18); CALCIUM 8.8 mg/dL (8.5-10.1); CARBON DIOXIDE,CO2 30.7 mmol/L (21.0-32.0); CHLORIDE,CL 101 mmol/L (98-107); CREATININE 1.75 mg/dL (0.51-1.17); ESTIMATED GFR 39 mL/min (>=60); GLUCOSE RANDOM 116 mg/dL (70-99); POTASSIUM,K 4.2 mmol/L (3.5-5.1); PROTEIN TOTAL,TP 8.2 g/dL (6.4-8.2); SODIUM,NA 139 mmol/L (136-145)
[2024-02-09] MEDS: Sodium Chloride 0.9% 500 ML IV SCH (20:59)
[2024-02-09 21:07] LABS: CORONAVIRUS COVID-19 NAA NEGATIVE (NEGATIVE); INFLUENZA A NAA NEGATIVE (NEGATIVE); INFLUENZA B NAA NEGATIVE (NEGATIVE); RESPIRATORY SYNCYTIAL VIR NAA NEGATIVE (NEGATIVE)
[2024-02-09 21:09] LABS: WHITE BLOOD CELL COUNT,WBC 74.7 K/uL (4.0-10.2)
[2024-02-09 21:38] VITALS: BP 140/81; PULSE 81
== END 2024-02-09 21:50 | disposition home or self-care (01) ==
LOC: LL.ED 19:57
DX: R55 Syncope and collapse (principal); E78.00 Pure hypercholesterolemia, unspecified; I12.9 Hypertensive chronic kidney disease with stage 1 through stage 4 chronic kidney disease, or unspecified chronic kidney disease; N18.9 Chronic kidney disease, unspecified; J44.9 Chronic obstructive pulmonary disease, unspecified; Z88.0 Allergy status to penicillin; Z88.8 Allergy status to other drugs, medicaments and biological substances; Z88.1 Allergy status to other antibiotic agents; Z79.899 Other long term (current) drug therapy
CPT/HCPCS: 0241U; 36415; 74022; 80053; 83605; 83735; 84484; 85025; 93005; 96360; 99284-25; J7040